=== PATIENT | male | born 1985 | race Caucasian/White ===

== ENCOUNTER 2018-01-03 12:08 | Inpatient (IN) | payer OTHER ==
[~2018-01-03] VITALS: Ht 175.3 cm; Wt 81.8 kg
[2018-01-03] MEDS: SODIUM CHLOR 0.9% 1000 ML INJ 1,000 ML IV SCH (15:58)
--- NOTE | 2018-01-03 15:58 | HHI.HP ---
[facility] Unknown Admission Diagnosis Diagnoses: Travel History International Travel<30 Days: No Contact w/Intl Traveler <30 Da: No Traveled to Known Affected Are: No History of Present Illness In transfer from [place] by Dr. Cerda to the product management specialist and the case was given to us the hospitalist group by him per hospital protocol. History from patient, and review of blood clots from [facility]. Patient was at [place] on monday and admitted to hospital there for abdoominal pain symptoms started 1 week ago january had fever LLQ pain little bit at epigastric had nausea, twice vomiting one day only no dairrhea no black or red stool no blood in urien not sure of vomitign color , maybe green had ct abdomen adn mri done there was diagnosed with chornic pancreatitis a few times before at [place] has hx of pseudocyst was told this admission pseudocyst got bigger they were worried about gi bleeed sx was consulted but not sure what to do and told he was sent here to either drain the pseudocyst or to put in stent was not on antibiotics there per patient was supposed to start, but ended up not was going to have picc line there but ended up not- for TPN, but he tolerated mechanical soft Review of Systems Except as stated in HPI: all other systems reviewed are Neg Past Family Social History Past Medical History htn walker parkinson white syndrome asthma- due to dusts, but has not been to ER visits for it for years, have not needed MDIs at home for years chronic pancreatitis with pseudocyst Past Surgical History none Allergies: Coded Allergies: hydrocodone (Verified Allergy, Intermediate, Nausea/Vomiting, 01/03/18) Patient has an adverse reaction to hydrocodone. Family History htn and heart dx in multiple members cancers of various types in multiple members dm strokes Social History smokes less than a pack a day, but not recently used to drink heavily in his mid 20s, then to about 2 drinks a day, NOW NO DRINKS SINCE OCT 2017 marjuana occasionally, no IV drugs Physical Exam Physical Exam GENERAL: This is a well-nourished, well-developed patient, in no apparent distress. SKIN: No rashes, ecchymoses or lesions. Cool and dry. HEAD: Atraumatic. Normocephalic. No temporal or scalp tenderness. EYES: No scleral icterus. No injection or drainage. ENT: Nose without bleeding, purulent drainage or septal hematoma. Airway patent. NECK: Trachea midline. No JVD Supple, nontender, no meningeal signs. CARDIOVASCULAR: Regular rate and rhythm without murmurs, gallops, or rubs. RESPIRATORY: Clear to auscultation. Breath sounds equal bilaterally. No wheezes , rales, or rhonchi. GASTROINTESTINAL: Abdomen soft,, nondistended. . No guarding. MUSCULOSKELETAL: Extremities without clubbing, cyanosis, or edema. No calf tenderness. Tenderness at left lower quadrant and midabdomen. NEUROLOGICAL: Awake and alert. Motor and sensory grossly within normal limits. Normal speech. Laboratory Labs from [facility] reviewed Imaging Imaging studies from [facility] reviewed Caprini VTE Risk Assessment Caprini VTE Risk Assessment: Mod/High Risk (score >= 2) Caprini Risk Assessment Model Point Value = 1 Point Value = 2 Point Value = 3 Point Value = 5 Age 41-60 Minor surgery BMI > 25 kg/m2 Swollen legs Varicose veins or History of unexplained or recurrent spontaneous Oral contraceptives or hormone replacement Sepsis (< 1 month) Serious lung disease, including pneumonia (< 1 month) Abnormal pulmonary function Acute myocardial infarction Congestive heart failure (< 1 month) History of inflammatory bowel disease Medical patient at bed rest Age 61-74 Arthroscopic surgery Major open surgery (> 45 min) Laparoscopic surgery (> 45 min) Malignancy Confined to bed (> 72 hours) Immobilizing plaster cast Central venous access Age >= 75 History of VTE Family history of VTE Factor V Leiden Prothrombin [id number] Lupus anticoagulant Anticardiolipin antibodies Elevated serum homocysteine Heparin-induced thrombocytopenia Other congenital or acquired thrombophilia Stroke (< 1 month) Elective arthroplasty Hip, pelvis, or leg fracture Acute spinal cord injury (< 1 month) Prophylaxis Regimen Total Risk Factor Score Risk Level Prophylaxis Regimen 0-1 Low Early ambulation 2 Moderate Order ONE of the following: *Sequential Compression Device (SCD) *Heparin 5000 units SQ BID 3-4 Higher Order ONE of the following medications: *Heparin 5000 units SQ TID *Enoxaparin/Lovenox 40 mg SQ daily (WT < 150 kg, CrCl > 30 mL/min) *Enoxaparin/Lovenox 30 mg SQ daily (WT < 150 kg, CrCl > 10-29 mL/min) *Enoxaparin/Lovenox 30 mg SQ BID (WT < 150 kg, CrCl > 30 mL/min) AND/OR *Sequential Compression Device (SCD) 5 or more Highest Order ONE of the following medications: *Heparin 5000 units SQ TID (Preferred with Epidurals) *Enoxaparin/Lovenox 40 mg SQ daily (WT < 150 kg, CrCl > 30 mL/min) *Enoxaparin/Lovenox 30 mg SQ daily (WT < 150 kg, CrCl > 10-29 mL/min) *Enoxaparin/Lovenox 30 mg SQ BID (WT < 150 kg, CrCl > 30 mL/min) AND *Sequential Compression Device (SCD) Assessment and Plan Assessment and Plan Impression: Acute pancreatitis Massive pancreatic pseudocyst. 18.9 x 15.4 x 10.5 cm arising from the mid pancreas, extending to gastric fundus and then inferiorly to left lower quadrant with marked enlargement as compared to a month ago when it measured 2.6 x 3 cm. With question of hyper attenuating densities throughout cyst suggesting either hemorrhagic products or faint contrast extravasation. Leukocytosis MRI of the pancreas revealing 3 main pancreatic duct obstruction with distal isolated pancreatic segments. Proximal and distal pancreatic duct seen but junction between head and body is not visualized. The site of origin for massive pseudocyst. Hypertension History of asthma GERD Chronic tobacco abuse Prior history of alcohol abuse. Has not been drinking since October 2017. Plan: N.p.o. IV hydration. Continue Zosyn 4.5 g IV every 6 hours. Continue Flagyl 500 mg IV every 6 hours. Patient reports that he thinks he was not on antibiotics there. However per notes, it seems that he was on Zosyn/ Flagyl. Lactobacillus. Pain control with oxycodone 10 mg p.o. every 4 hours as needed for pain greater than 5. Morphine 2 mg IV every 3 hours as needed for breakthrough pain. Bowel regimen. GI consult. Per signed out from Dr. Cerda the product management specialist who accepted the case from [place] and given to us, her outpatient case was discussed with GI Dr. Dr. Suarez. Patient is to undergo endoscopic ultrasound directed to him I did not. If no procedures done today, patient can continue p.o. feeding with clinical soft diet. Based on GI recommendations, will consider further management of pseudocyst with possibly interventional radiology involvement for drainage/stent placement. Obtain patient's medications list from his pharmacy. Patient has history of hypertension and was taking lisinopril. However this was being held at [place] likely because of low BP. Will monitor BP closely. DVT prophylaxis with SCD. Patient is admitted as full admit/inpatient. Discussed Condition With Patient, nursing staff Gia Brunner MD Jan 03, 2018 15:58
[2018-01-03] MEDS ORDERED: ONDANSETRON HCL 4 MG/2 ML VIAL IVP PRN (16:00)
[2018-01-03] MEDS ORDERED: NALOXONE HCL 0.4 MG/ML AMP IV PUSH PRN (16:00)
[2018-01-03] MEDS ORDERED: SODIUM CHLORIDE 0.9% FLUSH 10 ML FLUSH IV FLUSH PRN (16:00)
[2018-01-03 16:06] VITALS: BP 166/93; PULSE 78; RESP 18; TEMP 99.5; O2SAT 100
[2018-01-03] MEDS: LACTOBACILLUS ACIDOPHILUS TAB PO SCH (17:00)
[2018-01-03] MEDS: DOCUSATE SODIUM 100 MG CAP PO SCH (17:00)
[2018-01-03] MEDS: MORPHINE SULFATE 4 MG/ML INJ IV PUSH PRN ×2 (17:00→20:35)
[2018-01-03] MEDS: metroNIDAZOLE 500 MG INJ 100 ML IV SCH ×2 (17:00→22:58)
--- NOTE | 2018-01-03 17:32 | PD.CONS ---
HPI History of Present Illness This is a 32 year old male who was admitted on 01/03/2018 as a transfer from [place] with a diagnosis of chronic pancreatitis. Patient states he has been hospitalized since October 2017 3 with pancreatitis and had a significant history of alcohol intake. Patient currently denies any further alcohol intake since October 2017. Patient states that he was told initially he had small pseudocyst but current MRCP/MRI of the abdomen shows massive pseudocyst suspicion for type III main pancreatic duct disruption. Patient is currently on IV hydration and receiving IV pain management. Patient does note nausea and vomiting approximately a week ago which has now subsided he does note history of heartburn and was initially taken omeprazole but the med became ineffective. He was changed to Protonix 1 month ago but currently is still having bouts of heartburn on a weekly basis. Patient's currently having mid to upper abdominal pain which is tender to light palpation, onset approximately 1 week ago with his symptoms of nausea and vomiting. patient denies any dysphasia no obvious upper or lower GI bleeding, no diarrhea. Patient does note some chronic constipation over the past week but states he has not been eating very much and has had very little activity. Gastroenterology was consulted to assist with patient's care and evaluate plan of care for pancreatic pseudocyst. No family history of colon cancer according to patient. No previous EGD or corneal colonoscopy per patient's history (Reanna Chaney) PFSH Past Medical History Per the records htn walker parkinson white syndrome asthma- due to dusts, but has not been to ER visits for it for years, have not needed MDIs at home for years chronic pancreatitis with pseudocyst 3 hospital admissions Past Surgical History none (Reanna Chaney) Coded Allergies: hydrocodone (Verified Allergy, Intermediate, Nausea/Vomiting, 01/03/18) Patient has an adverse reaction to hydrocodone. Family History htn and heart dx in multiple members cancers of various types in multiple members dm strokes Social History smokes less than a pack a day, but not recently used to drink heavily in his mid 20s, then to about 2 drinks a day, NOW NO DRINKS SINCE OCT 2017 marjuana occasionally, no IV drugs (Reanna Chaney) Review of Systems Constitutional: COMPLAINS OF: Fever (Low-grade) Gastrointestinal: COMPLAINS OF: Abdominal pain, Constipation, Nausea, Vomiting (Approximately 1 week ago now subsided) (Reanna Chaney) GI Exam Vitals I&O Vital Signs Date Time Temp Pulse Resp B/P (MAP) Pulse Ox O2 Delivery O2 Flow Rate FiO2 01/03/18 16:06 99.5 78 18 166/93 (117) 100 Physical Examination HEENT: Pupils round and reactive to light; normocephalic; atraumatic; speech is clear NECK: Neck is supple, CHEST: Chest is clear to auscultation and percussion. No obvious shortness of breath CARDIAC: Regular rate and rhythm with no murmur gallop or rubs. ABDOMEN: Soft, mild or minimal bloating/distention, mid and upper abdominal tenderness to light palpation no hepatosplenomegaly; bowel sounds are present in all four quadrants. EXTREMITIES: No clubbing, cyanosis, or edema. SKIN: Normal; no rash; no jaundice. SEX OFFENDER TREATMENT PROFESSIONAL: No focal deficits; alert and oriented times three. (Reanna Chaney) Assessment and Plan Plan Pancreatitis with large massive pseudocyst according to the record. Will attempt to get films from radiology at [place]. Pancreatitis was probably secondary to extensive chronic alcohol usage, patient states no alcohol since October but has continued to have hospitalization 3 for his pancreatitis. Patient continues to have upper abdominal and gastric region abdominal pain approximately 1 week off and now. History of reflux and GERD has been on Protonix for approximately 1 month. Previously was on omeprazole no previous colonoscopy or endoscopy no family history of colon cancer Constipation 3 days probably secondary to decreased appetite and decreased mobility and decreased hydration before coming into the hospital Plan Pain management per attending Monitor labs and recheck labs in the morning Attempting to get films from [place]. Found DISC in front of chart. Will leave there for now. MiraLAX daily IV hydration Antiemetics Flagyl IV and Zosyn Probiotic Supportive care Further recommendations will be based on symptoms and old records This patient was seen per myself and Dr. Coffman, note was done on his behalf (Reanna Chaney) Physician Comments Patient laying in bed feeling somewhat better with controlled abdominal pain but no additional symptoms I reviewed some of his paperwork from [facility] he apparently has a pseudocyst measuring about 20 cm but otherwise it seems that this pseudocyst is not really having much of an effect on him until I examine his abdomen At this point we will proceed with a CT of the abdomen to further evaluate the pseudocyst to see whether it is shrinking or enlarging and based on that will make some decisions also we will need to know about its maturity Continue with current supportive care Monitor labs Further recommendations she will depend on the results of the above tests (Alexi Coffman MD) Reanna Chaney Jan 03, 2018 17:31 Alexi Coffman MD Jan 03, 2018 23:25
[2018-01-03] MEDS: POLYETHYLENE GLYCOL 17 GM PKG PO SCH (18:11)
[2018-01-03] MEDS: PIPERACIL-TAZO 4.5 GM PREMIX 100 ML IV SCH (18:44)
[2018-01-03 20:00] VITALS: BP 149/90; PULSE 82; RESP 20; TEMP 99.1; O2SAT 96
[2018-01-03] MEDS: SODIUM CHLORIDE 0.9% FLUSH 10 ML FLUSH IV FLUSH SCH ×2 (20:37→20:40)
[2018-01-04] VITALS (12 sets, daily range): BP systolic 126–142; BP diastolic 72–83; PULSE 66–82; RESP 16–20; TEMP 98.1–98.8; O2SAT 96–100
[2018-01-04] MEDS: PIPERACIL-TAZO 4.5 GM PREMIX 100 ML IV SCH ×5 (00:13→20:18)
[2018-01-04] MEDS: MORPHINE SULFATE 4 MG/ML INJ IV PUSH PRN ×6 (00:14→23:03)
[2018-01-04] MEDS: SODIUM CHLOR 0.9% 1000 ML INJ 1,000 ML IV SCH (05:45)
[2018-01-04] MEDS: metroNIDAZOLE 500 MG INJ 100 ML IV SCH ×4 (05:47→23:56)
[2018-01-04 06:00] LABS: AUTOMATED NEUTROPHIL # 6.5 TH/MM3 (1.8-7.7); BASOPHIL # 0.1 TH/MM3 (0-0.2); BASOPHIL % 0.6 % (0.0-2.0); EOSINOPHIL # 0.4 TH/MM3 (0-0.4); LYMPH % 17.3 % (9.0-44.0); LYMPHOCYTE # 1.6 TH/MM3 (1.0-4.8); MEAN CELL VOLUME 87.5 FL (80.0-100.0); MEAN CORPUSCULAR HGB CONC 34.3 % (32.0-36.0); MEAN PLATELET VOLUME 8.1 FL (7.0-11.0); MONO % 8.6 % (0.0-8.0); MONOCYTE # 0.8 TH/MM3 (0-0.9); NEUT % 69.5 % (16.0-70.0); PLATELET COUNT 441 TH/MM3 (150-450); RED BLOOD COUNT 2.35 MIL/MM3 (4.50-5.90); RED CELL DISTRIBUTION WIDTH 16.4 % (11.6-17.2); WHITE BLOOD COUNT 9.4 TH/MM3 (4.0-11.0)
[2018-01-04 06:06] LABS: HEMATOCRIT 20.6 % (39.0-51.0); INTERNATIONAL NORMALIZED RATIO 1.4 RATIO
[2018-01-04] MEDS ORDERED: FOLI800T PO (06:10)
[2018-01-04] MEDS ORDERED: ZOFR4TAB PO (06:10)
[2018-01-04] MEDS ORDERED: MIRA3350 PO (06:10)
[2018-01-04] MEDS ORDERED: AMLO10 PO (06:10)
[2018-01-04] MEDS ORDERED: COLA100C5 PO (06:10)
[2018-01-04] MEDS ORDERED: PANT40TA3 PO (06:10)
[2018-01-04] MEDS ORDERED: VITA100T54 PO (06:10)
[2018-01-04] MEDS ORDERED: LISI-515 PO (06:10)
[2018-01-04] MEDS ORDERED: SODIUM CHLOR 0.9% 250 ML INJ 250 ML IV ONE (06:30)
[2018-01-04 06:35] LABS: ALBUMIN 2.5 GM/DL (3.4-5.0); ALKALINE PHOSPHATASE 99 U/L (45-117); ALT (GPT) 16 U/L (12-78); AST (GOT) 14 U/L (15-37); BICARBONATE 23.7 MEQ/L (21.0-32.0); BLOOD UREA NITROGEN 5 MG/DL (7-18); CALCIUM 8.9 MG/DL (8.5-10.1); CHLORIDE 107 MEQ/L (98-107); CREATININE 0.61 MG/DL (0.60-1.30); GLOMERULAR FILTRATION RATE 152 ML/MIN (>89); GLUCOSE,RANDOM 96 MG/DL (74-106); SODIUM (NA) 139 MEQ/L (136-145); TOTAL BILIRUBIN ADULT 0.6 MG/DL (0.2-1.0); TOTAL PROTEIN 6.6 GM/DL (6.4-8.2)
[2018-01-04] MEDS: LACTOBACILLUS ACIDOPHILUS TAB PO SCH ×3 (08:17→17:37)
[2018-01-04] MEDS: SODIUM CHLORIDE 0.9% FLUSH 10 ML FLUSH IV FLUSH SCH ×2 (08:17→20:20)
[2018-01-04] MEDS: POLYETHYLENE GLYCOL 17 GM PKG PO SCH (08:17)
[2018-01-04] MEDS: DOCUSATE SODIUM 100 MG CAP PO SCH ×3 (08:18→17:37)
[2018-01-04] MEDS ORDERED: DIATRIZOATE MEGLUM/DIATRIZOATE SOD 9 ML CUP PO ONE ×2 (09:45→10:45)
[2018-01-04] MEDS: NS + KCL 20 MEQ INJ 1,000 ML IV SCH ×2 (10:39→23:06)
[2018-01-04] MEDS ORDERED: POTASSIUM CHLOR 20 MEQ PREMIX 100 ML IV ONE (11:00)
[2018-01-04] MEDS ORDERED: POTASSIUM CHLORIDE 20 MEQ CONTROLLED RELEASE TAB PO ONE ×2 (11:00→14:00)
--- NOTE | 2018-01-04 11:31 | HHI.PR ---
Subjective Remarks F/U Pancreatitis. Abd pain 02/18 dw RN Objective Vitals Vital Signs Date Time Temp Pulse Resp B/P (MAP) Pulse Ox O2 Delivery O2 Flow Rate FiO2 01/04/18 10:32 98.2 80 16 126/81 100 01/04/18 10:18 98.6 77 18 127/76 98 01/04/18 08:06 98.6 77 17 127/73 (91) 98 01/04/18 08:00 75 01/04/18 04:00 98.3 74 20 131/72 (91) 96 01/04/18 04:00 78 01/04/18 00:00 98.3 72 20 127/72 (90) 100 01/04/18 00:00 66 01/03/18 20:00 99.1 82 20 149/90 (109) 96 01/03/18 16:06 99.5 78 18 166/93 (117) 100 I/O 01/03/18 01/03/18 01/03/18 01/04/18 01/04/18 01/04/18 07:00 15:00 23:00 07:00 15:00 23:00 Intake Total 740 ml 1442 ml 25 ml Balance 740 ml 1442 ml 25 ml Intake Oral 240 ml IV Total 500 ml 1442 ml Blood Product IV Normal Saline Flush 25 ml Result Diagram: 01/04/18 0500 01/04/18 0500 Objective Remarks GENERAL: This is a well-nourished, well-developed patient, in no apparent distress. SKIN: No rashes, ecchymoses or lesions. Cool and dry. CARDIOVASCULAR: Regular rate and rhythm without murmurs, gallops, or rubs. RESPIRATORY: Clear to auscultation. Breath sounds equal bilaterally. No wheezes , rales, or rhonchi. GASTROINTESTINAL: Abdomen soft, tender epigastric, nondistended. No guarding. MUSCULOSKELETAL: Extremities without clubbing, cyanosis, or edema. No calf tenderness. NEUROLOGICAL: Awake and alert. Motor and sensory grossly within normal limits. Normal speech. A/P Problem List: (1) Pancreatitis ICD Code: K85.90 - Acute pancreatitis without necrosis or infection, unspecified Assessment and Plan Acute pancreatitis with massive pancreatic pseudocyst. 18.9 x 15.4 x 10.5 cm arising from the mid pancreas, extending to gastric fundus and then inferiorly to left lower quadrant with marked enlargement as compared to a month ago when it measured 2.6 x 3 cm. With question of hyper attenuating densities throughout cyst suggesting either hemorrhagic products or faint contrast extravasation. Stable still with abdominal pain. Continue pain management counseled regarding narcotics and antibiotics with Zosyn and Flagyl. Repeat CT ordered. Per GI regarding pseudocyst, if mature and appropriate size consider EUS and cyst gastrostomy Leukocytosis. Improved Hypertension Norvasc History of asthma. Stable. GERD. Stable continue PPI Chronic tobacco abuse. Counseled Prior history of alcohol abuse. Has not been drinking since October 2017. DVT prophylaxis with SCD. Casey Don MD Jan 04, 2018 11:31
--- NOTE | 2018-01-04 12:02 | HHI.GIFU ---
Subjective Remarks Out of bed. drinking contrast. Pain unchanged. denies bleeding. cites previously being told he had MARILIN. (Shanna Tuttle) Objective Vitals I&O Vital Signs Date Time Temp Pulse Resp B/P (MAP) Pulse Ox O2 Delivery O2 Flow Rate FiO2 01/04/18 11:28 Room Air 01/04/18 10:32 98.2 80 16 126/81 100 01/04/18 10:18 98.6 77 18 127/76 98 01/04/18 08:06 98.6 77 17 127/73 (91) 98 01/04/18 08:00 75 01/04/18 08:00 Room Air 01/04/18 04:00 98.3 74 20 131/72 (91) 96 01/04/18 04:00 78 01/04/18 00:00 98.3 72 20 127/72 (90) 100 01/04/18 00:00 66 01/03/18 20:00 99.1 82 20 149/90 (109) 96 01/03/18 16:06 99.5 78 18 166/93 (117) 100 I/O 01/03/18 01/03/18 01/03/18 01/04/18 01/04/18 01/04/18 07:00 15:00 23:00 07:00 15:00 23:00 Intake Total 740 ml 1442 ml 25 ml Balance 740 ml 1442 ml 25 ml Intake Oral 240 ml IV Total 500 ml 1442 ml Blood Product IV Normal Saline Flush 25 ml Laboratory Laboratory Tests Test 01/04/18 05:00 White Blood Count 9.4 Red Blood Count 2.35 Hemoglobin 7.0 Hematocrit 20.6 Mean Corpuscular Volume 87.5 Mean Corpuscular Hemoglobin 30.0 Mean Corpuscular Hemoglobin Concent 34.3 Red Cell Distribution Width 16.4 Platelet Count 441 Mean Platelet Volume 8.1 Neutrophils (%) (Auto) 69.5 Lymphocytes (%) (Auto) 17.3 Monocytes (%) (Auto) 8.6 Eosinophils (%) (Auto) 4.0 Basophils (%) (Auto) 0.6 Neutrophils # (Auto) 6.5 Lymphocytes # (Auto) 1.6 Monocytes # (Auto) 0.8 Eosinophils # (Auto) 0.4 Basophils # (Auto) 0.1 CBC Comment DIFF FINAL Differential Comment Prothrombin Time 14.0 Prothromb Time International Ratio 1.4 Blood Urea Nitrogen 5 Creatinine 0.61 Random Glucose 96 Total Protein 6.6 Albumin 2.5 Calcium Level 8.9 Alkaline Phosphatase 99 Aspartate Amino Transf (AST/SGOT) 14 Alanine Aminotransferase (ALT/SGPT) 16 Total Bilirubin 0.6 Sodium Level 139 Potassium Level 2.8 Chloride Level 107 Carbon Dioxide Level 23.7 Anion Gap 8 Estimat Glomerular Filtration Rate 152 Magnesium Level 1.6 Lipase 222 Physical Exam HEENT: PERRL; normocephalic; atraumatic; no jaundice. CHEST: CTA CARDIAC: RRR ABDOMEN: semifirm, distended, mild TTP diffusely; bowel sounds are present in all four quadrants. EXTREMITIES: No clubbing, cyanosis, or edema. SKIN: Normal; no rash; no jaundice. STEAM BRUSH OPERATOR: No focal deficits; alert and oriented times three. (Shanna Tuttle) Assessment and Plan Plan Pancreatitis with large massive pseudocyst according to the record. Will attempt to get films from radiology at [place]. Pancreatitis was probably secondary to extensive chronic alcohol usage, patient states no alcohol since October but has continued to have hospitalization 3 for his pancreatitis. Patient continues to have upper abdominal and gastric region abdominal pain approximately 1 week off and now. History of reflux and GERD has been on Protonix for approximately 1 month. Previously was on omeprazole no previous colonoscopy or endoscopy no family history of colon cancer Constipation 3 days probably secondary to decreased appetite and decreased mobility and decreased hydration before coming into the hospital - anemia - hgb 7 receiving blood. no obvious GI bleeding, pt cites hx MARILIN. 01/04/[address] pain unchained. lipase WNL. Plan - await CT - if mature and appropriate size consider EUS and cyst gastrostomy - consider creon when eating - monitor labs - transfuse PRBC as needed - supportive care This patient was seen per myself and Dr. Coffman, note was done on his behalf (Shanna Tuttle) Physician Comments Patient seen and examined Agree with above Continue with current supportive care Monitor labs We will proceed with endoscopic ultrasound and cyst gastrostomy tomorrow (Alexi Coffman MD) Shanna Tuttle Jan 04, 2018 12:01 Alexi Coffman MD Jan 04, 2018 21:04
[2018-01-04] MEDS ORDERED: IOHEXOL 350 MG/ML 10 ML VIAL (for RAD DIAG) IVCONTRAST ONE (14:31)
--- NOTE | 2018-01-04 14:58 | RADRPT ---
EXAM DATE/TIME: 01/04/2018 14:16 [place] COMPARISON: No previous studies available for comparison. INDICATIONS : Left lower abdominal pain IV CONTRAST: 91 cc Omnipaque 350 (iohexol) IV ORAL CONTRAST: Prescribed oral contrast ingested. RADIATION DOSE: 9.11 CTDIvol (mGy) MEDICAL HISTORY : Hypertension. Pancreatitis. Pseudocyst SURGICAL HISTORY : None. ENCOUNTER: Initial ACUITY: 1 day PAIN SCALE: 6/10 LOCATION: Left lower quadrant TECHNIQUE: Volumetric scanning of the abdomen and pelvis was performed. Using automated exposure control and ad justment of the mA and/or kV according to patient size, radiation dose was kept as low as reasonably achievable to obtain optimal diagnostic quality images. DICOM format image data is available electro nically for review and comparison. FINDINGS: LOWER LUNGS: The visualized lower lungs are clear. LIVER: Homogeneous density without lesion. There is no dilation of the biliary tree. No calcified gallston es. SPLEEN: Normal size without lesion. PANCREAS: Arising from the neck of the pancreas is a large low density mass presumably a large pancreatic pseud ocyst. There is a small amount of debris in the dependent portion. The cyst measures 16.0 x 12.1 cm. I don't see any evidence of internal hemorrhage. There is some surrounding soft tissue inflammation. The mass does displace the stomach and abuts the anterior abdominal wall. The mass measured 19 cm in height. KIDNEYS: Normal in size and shape. There is no mass, stone or hydronephrosis. ADRENAL GLANDS: Within normal limits. VASCULAR: There is no aortic aneurysm. BOWEL/MESENTERY: The stomach, small bowel, and colon demonstrate no acute abnormality. There is no free intraperitone al air or fluid. ABDOMINAL WALL: Within normal limits. RETROPERITONEUM: There is no lymphadenopathy. BLADDER: No wall thickening or mass. Free fluid posterior to the bladder REPRODUCTIVE: Within normal limits. INGUINAL: There is no lymphadenopathy or hernia. MUSCULOSKELETAL: Within normal limits for patient age. CONCLUSION: Large fluid filled mass in the mid abdomen I suspect arising from the neck of the pancreas consistent with large pseudocyst. There is some indistinctness of the pancreas suggesting pancreatitis. Mario Schroeder MD on January 04, 2018 at 14:51 Board Certified Radiologist. This report was verified electronically.
[2018-01-04 16:19] LABS: IRON (FE) 11 MCG/DL (65-175); TOTAL IRON BINDING CAPACITY 183 MCG/DL (250-450)
[2018-01-04 16:22] LABS: FERRITIN 501 NG/ML (26-388)
[2018-01-05] VITALS (18 sets, daily range): BP systolic 131–162; BP diastolic 73–95; PULSE 50–104; RESP 16–19; TEMP 98.4–99.5; O2SAT 97–100
[2018-01-05] MEDS: PIPERACIL-TAZO 4.5 GM PREMIX 100 ML IV SCH ×4 (02:00→19:50)
[2018-01-05 05:32] LABS: AUTOMATED NEUTROPHIL # 6.8 TH/MM3 (1.8-7.7); BASOPHIL # 0.1 TH/MM3 (0-0.2); BASOPHIL % 0.7 % (0.0-2.0); EOSINOPHIL # 0.4 TH/MM3 (0-0.4); HEMATOCRIT 22.3 % (39.0-51.0); HEMOGLOBIN 7.7 GM/DL (13.0-17.0); LYMPH % 17.2 % (9.0-44.0); LYMPHOCYTE # 1.7 TH/MM3 (1.0-4.8); MEAN CELL VOLUME 85.4 FL (80.0-100.0); MEAN CORPUSCULAR HEMOGLOBIN 29.5 PG (27.0-34.0); MEAN CORPUSCULAR HGB CONC 34.5 % (32.0-36.0); MONO % 8.7 % (0.0-8.0); MONOCYTE # 0.8 TH/MM3 (0-0.9); NEUT % 69.4 % (16.0-70.0); PLATELET COUNT 490 TH/MM3 (150-450); RED BLOOD COUNT 2.61 MIL/MM3 (4.50-5.90); RED CELL DISTRIBUTION WIDTH 16.9 % (11.6-17.2); WHITE BLOOD COUNT 9.7 TH/MM3 (4.0-11.0)
[2018-01-05] MEDS: metroNIDAZOLE 500 MG INJ 100 ML IV SCH ×3 (05:42→19:50)
[2018-01-05 05:57] LABS: BICARBONATE 23.1 MEQ/L (21.0-32.0); CALCIUM 8.5 MG/DL (8.5-10.1); CREATININE 0.57 MG/DL (0.60-1.30); MAGNESIUM 1.7 MG/DL (1.5-2.5)
[2018-01-05] MEDS: SODIUM CHLORIDE 0.9% FLUSH 10 ML FLUSH IV FLUSH SCH ×3 (07:37→19:51)
[2018-01-05] MEDS: MORPHINE SULFATE 4 MG/ML INJ IV PUSH PRN (08:05)
[2018-01-05] MEDS: LACTOBACILLUS ACIDOPHILUS TAB PO SCH ×4 (09:00→19:50)
[2018-01-05] MEDS ORDERED: THIAMINE HCL 100 MG TAB PO SCH (09:00)
[2018-01-05] MEDS ORDERED: PANTOPRAZOLE SOD 40 MG DELAYED RELEASE TAB PO SCH (09:00)
[2018-01-05] MEDS: DOCUSATE SODIUM 100 MG CAP PO SCH ×2 (09:00→13:00)
[2018-01-05] MEDS ORDERED: PHENYLEPH/NS 1000 MCG/10 ML SYR IV ONE (12:00)
[2018-01-05] MEDS ORDERED: ONDANSETRON HCL 4 MG/2 ML VIAL IV ONE (12:00)
[2018-01-05] MEDS ORDERED: DEXAMETHASONE SOD PHOS 4 MG/ML VIAL IV ONE (12:00)
[2018-01-05] MEDS ORDERED: LIDOCAINE HCL 1% PF 5 ML SYRINGE OTHER ONE (12:00)
[2018-01-05] MEDS ORDERED: SUCCINYLCHOLINE CHLORIDE 100 MG/5 ML SYRINGE IV PUSH ONE (12:00)
[2018-01-05] MEDS ORDERED: PROPOFOL 200 MG/20 ML AMP IV ONE (12:00)
[2018-01-05] MEDS ORDERED: ROCURONIUM INJ 50 MG/5 ML SYRINGE IV PUSH ONE (12:00)
--- NOTE | 2018-01-05 13:04 | HHI.PR ---
Subjective Remarks F/u pancreatitis. Still with abdominal pain awaiting EUS dw RN Objective Vitals Vital Signs Date Time Temp Pulse Resp B/P (MAP) Pulse Ox O2 Delivery O2 Flow Rate FiO2 01/05/18 12:00 99.5 78 18 149/85 (106) 100 01/05/18 08:00 100 Room Air 01/05/18 08:00 98.4 77 18 142/80 (100) 100 01/05/18 04:12 Room Air 01/05/18 04:00 98.4 88 18 131/73 (92) 99 01/05/18 03:42 71 01/05/18 00:15 Room Air 01/05/18 00:00 99.1 76 17 140/81 (100) 97 01/04/18 23:43 69 01/04/18 20:00 Room Air 01/04/18 19:48 76 01/04/18 19:43 98.8 75 16 142/83 (102) 99 01/04/18 16:06 98.5 80 16 137/74 (95) 99 01/04/18 13:30 Room Air I/O 01/04/18 01/04/18 01/04/18 01/05/18 01/05/18 01/05/18 07:00 15:00 23:00 07:00 15:00 23:00 Intake Total 1442 ml 450 ml 200 ml 1300 ml Balance 1442 ml 450 ml 200 ml 1300 ml Intake Oral 0 ml IV Total 1442 ml 200 ml 1300 ml Packed Cells 400 ml Blood Product IV Normal Saline Flush 50 ml # Voids 5 3 # Bowel Movements 0 1 Result Diagram: 01/05/18 0440 01/05/18 0440 Imaging Last Impressions Abdomen/Pelvis CT 01/03/18 0000 Signed Impressions: Service Date/Time: December 14:16 - CONCLUSION: Large fluid filled mass in the mid abdomen I suspect arising from the neck of the pancreas consistent with large pseudocyst. There is some indistinctness of the pancreas suggesting pancreatitis. Mario Schroeder MD Objective Remarks GENERAL: This is a well-nourished, well-developed patient, in no apparent distress. SKIN: No rashes, ecchymoses or lesions. Cool and dry. CARDIOVASCULAR: Regular rate and rhythm without murmurs, gallops, or rubs. RESPIRATORY: Clear to auscultation. Breath sounds equal bilaterally. No wheezes , rales, or rhonchi. GASTROINTESTINAL: Abdomen soft, tender epigastric, nondistended. No guarding. MUSCULOSKELETAL: Extremities without clubbing, cyanosis, or edema. No calf tenderness. NEUROLOGICAL: Awake and alert. Motor and sensory grossly within normal limits. Normal speech. A/P Problem List: (1) Pancreatitis ICD Code: K85.90 - Acute pancreatitis without necrosis or infection, unspecified Assessment and Plan Acute pancreatitis with massive pancreatic pseudocyst. 18.9 x 15.4 x 10.5 cm arising from the mid pancreas, extending to gastric fundus and then inferiorly to left lower quadrant with marked enlargement as compared to a month ago when it measured 2.6 x 3 cm. With question of hyper attenuating densities throughout cyst suggesting either hemorrhagic products or faint contrast extravasation. Stable still with abdominal pain. Continue pain management counseled regarding narcotics and antibiotics with Zosyn and Flagyl. Repeat CT not for EUS today Leukocytosis. Improved Hypertension Norvasc History of asthma. Stable. GERD. Stable continue PPI Chronic tobacco abuse. Counseled Prior history of alcohol abuse. Has not been drinking since October 2017. DVT prophylaxis with SCD. Casey Don MD Jan 05, 2018 13:04
[2018-01-05 13:55] LABS: AUTOMATED NEUTROPHIL # 7.1 TH/MM3 (1.8-7.7); BASOPHIL # 0.1 TH/MM3 (0-0.2); BASOPHIL % 0.9 % (0.0-2.0); EOSINOPHIL # 0.4 TH/MM3 (0-0.4); EOSINOPHIL % 3.6 % (0.0-4.0); HEMATOCRIT 22.7 % (39.0-51.0); HEMOGLOBIN 7.7 GM/DL (13.0-17.0); LYMPH % 19.6 % (9.0-44.0); LYMPHOCYTE # 2.1 TH/MM3 (1.0-4.8); MEAN CELL VOLUME 86.7 FL (80.0-100.0); MEAN CORPUSCULAR HEMOGLOBIN 29.2 PG (27.0-34.0); MEAN CORPUSCULAR HGB CONC 33.7 % (32.0-36.0); MONO % 8.1 % (0.0-8.0); MONOCYTE # 0.9 TH/MM3 (0-0.9); NEUT % 67.8 % (16.0-70.0); PLATELET COUNT 486 TH/MM3 (150-450); RED BLOOD COUNT 2.62 MIL/MM3 (4.50-5.90); RED CELL DISTRIBUTION WIDTH 17.3 % (11.6-17.2); WHITE BLOOD COUNT 10.5 TH/MM3 (4.0-11.0)
[2018-01-05] MEDS ORDERED: PHENYLEPHRINE HCL 10 MG/ML VIAL ONE (14:06)
[2018-01-05] MEDS ORDERED: PROPOFOL 1000 MG/100 ML INJ 100 ML ONE (14:06)
--- NOTE | 2018-01-05 14:26 | PD.PROCEDR ---
GI Procedure PROCEDURE PERFORMED Endoscopic ultrasound with axios stent placement and pseudocyst drainage INDICATION FOR PROCEDURE Large pseudocyst PROCEDURE: The procedure, risks and benefits were discussed with Patient/POA and informed consent was obtained. Anesthesia sedated Patient with Diprivan and he was intubated. Patient was placed in the left lateral decubitus position. Endoscopic ultrasound: The Pentax videoscope was introduced through the oropharynx and advanced to the second portion of the duodenum. FINDINGS: The patient was noted to have a huge pseudocyst most of the compression was noted in the distal gastric body and antrum no gastric outlet obstruction noted gastric mucosa was also unremarkable using the axios system a 10 X 10 axios stent was placed with ease once it was placed old blood was noted to be coming from the stent the abdomen became soft initially vital signs were stable but then we noted slight decline in blood pressure we observe the stent for any active bleeding for over 20 minutes there were small amounts of drainage at a time noted but still dark red and maroonish a hemoglobin was sent during the procedure and this came back stable about 1500 cc were suctioned from the stomach of old blood due to the concern that there may have been bleeding into the cyst we opted to keep the patient intubated and he will be sent to the ICU for close monitoring over the next 24 hours ESTIMATED BLOOD LOSS: There was about 1500 cc of old blood suctioned from the stomach as a result of draining the pseudocyst which most likely was a hemorrhagic cyst SPECIMENS REMOVED: None COMPLICATIONS: Possible bleeding but for now the patient appears to be stable hemodynamically with stable hemoglobin IMPRESSION: Large pseudocyst probably a hemorrhagic pseudocyst status post drainage PLAN: Patient to be transferred to the [facility] Patient will receive 2 units of blood in the OR with 2 units of fresh frozen plasma 2 units of blood will be on hold at all times Case discussed briefly with interventional radiology they are on standby Further recommendations shall depend on his hospital course Alexi Coffman MD Jan 05, 2018 14:26
[2018-01-05] MEDS: PROPOFOL 1000 MG/100 ML IV PRN ×3 (14:38→21:00)
[2018-01-05] MEDS ORDERED: DO NOT ADM ANY ANTICOAGULANT DRUGS PRN (14:58)
[2018-01-05] MEDS ORDERED: SODIUM CHLOR 0.9% 1000 ML INJ 1,000 ML IV SCH (15:01)
--- NOTE | 2018-01-05 15:12 | PD.CONS ---
[facility] Service Critical Care Medicine Consult Requested By Dr. Roth Reason for Consult Hypotension/hemorrhage Primary Care Physician Unknown History of Present Illness This is a 32-year-old male. Date of admission . Date of consultation 01/05/2018. Past medical history includes chronic pancreatitis with known pseudocyst with prior history of heavy alcohol intake. He states he quit October 2017. Also history of Yxtub-Kktqmtdgc-Gorsr syndrome, constipation, gastroesophageal reflux disease and hypertension with asthma. with a diagnosis of chronic pancreatitis. Patient has a known history of small pseudocyst but MRCP at that facility showed a massive pseudocyst versus a type III main pancreatic duct disruption. Patient was complaining of abdominal pain at that time. Patient was transferred here for a GI evaluation for endoscopic ultrasound with GI. Hemoglobin admission was around 7. INR 1.4. Today, the patient underwent a Pentax videoscope via endoscopic ultrasound with axios stent placement and pseudocyst drainage. The patient was noted to have a huge pseudocyst with most compression noted in the distal gastric body and antrum. No gastric outlet obstruction. A 10 x 10 axial stent was placed with old blood noted coming from the stent into the abdomen. During the procedure partly 1500 cc suctioned from the stomach. Patient was transfused 2 PRBCs and 2 FFP. Hemoglobin went from 7.7-9.1. Dr. Coffman discussed with interventional radiology for an standpoint bleeding persists. 2 units of PRBCs on standby at all times. Patient is currently hemodynamically stable on propofol drip and remained intubated for the next 24 hours. Review of Systems ROS Limitations: Intubated Past Family Social History Allergies: Coded Allergies: hydrocodone (Verified Allergy, Intermediate, Nausea/Vomiting, 01/03/18) Patient has an adverse reaction to hydrocodone. Past Medical History Hypertension Constipation Gastroesophageal reflux disease Chronic pancreatitis Lojpr-Vhlctxcjn-Qlcwe syndrome Asthma Pancreatic pseudocyst Past Surgical History None Reported Medications Amlodipine 10 mg p.o. daily Lisinopril 20 mg p.o. twice daily Pantoprazole 40 mg p.o. daily Folic acid 1 mg p.o. daily Thiamine 100 mg daily Folic acid 1000 mcg p.o. daily Polyethylene glycol 17 g p.o. daily Docusate 100 mg p.o. twice daily as needed Active Ordered Medications Reviewed in EMR Family History Family history of heart disease and hypertension. Various cancers. Diabetes and CVA. Social History Less than 1 pack per day tobacco. Occasional THC. Denies IV drug use. Alcohol free since October 2017 per documentation. Previous heavy consumer of alcoholic beverages Physical Exam Vital Signs Vital Signs Date Time Temp Pulse Resp B/P (MAP) Pulse Ox O2 Delivery O2 Flow Rate FiO2 01/05/18 12:00 99.5 78 18 149/85 (106) 100 01/05/18 08:00 100 Room Air 01/05/18 08:00 98.4 77 18 142/80 (100) 100 01/05/18 04:12 Room Air 01/05/18 04:00 98.4 88 18 131/73 (92) 99 01/05/18 03:42 71 01/05/18 00:15 Room Air 01/05/18 00:00 99.1 76 17 140/81 (100) 97 01/04/18 23:43 69 01/04/18 20:00 Room Air 01/04/18 19:48 76 01/04/18 19:43 98.8 75 16 142/83 (102) 99 01/04/18 16:06 98.5 80 16 137/74 (95) 99 Physical Exam GENERAL: 32-year-old male currently orotracheally intubated SKIN: Warm and dry. HEAD: Atraumatic. Normocephalic. EYES: Pupils equal and round. No scleral icterus. No injection or drainage. ENT: No nasal bleeding or discharge. Mucous membranes pink and moist. NECK: Trachea midline. No JVD. CARDIOVASCULAR: Regular rate and rhythm. S1, S2 predose without murmur RESPIRATORY: No accessory muscle use. Clear to auscultation. Breath sounds equal bilaterally. GASTROINTESTINAL: Abdomen soft, non-tender, nondistended. Hypoactive bowel sounds are appreciated MUSCULOSKELETAL: Extremities without significant peripheral edema. No obvious deformities. NEUROLOGICAL: Arousable on the ventilator and attempting to pull out ET tube. Moving all 4 extremities spontaneously. Positive gag and corneal reflex. Laboratory Laboratory Tests Test 01/05/18 04:40 01/05/18 13:38 White Blood Count 9.7 10.5 Red Blood Count 2.61 2.62 Hemoglobin 7.7 7.7 Hematocrit 22.3 22.7 Mean Corpuscular Volume 85.4 86.7 Mean Corpuscular Hemoglobin 29.5 29.2 Mean Corpuscular Hemoglobin Concent 34.5 33.7 Red Cell Distribution Width 16.9 17.3 Platelet Count 490 486 Mean Platelet Volume 8.0 8.0 Neutrophils (%) (Auto) 69.4 67.8 Lymphocytes (%) (Auto) 17.2 19.6 Monocytes (%) (Auto) 8.7 8.1 Eosinophils (%) (Auto) 4.0 3.6 Basophils (%) (Auto) 0.7 0.9 Neutrophils # (Auto) 6.8 7.1 Lymphocytes # (Auto) 1.7 2.1 Monocytes # (Auto) 0.8 0.9 Eosinophils # (Auto) 0.4 0.4 Basophils # (Auto) 0.1 0.1 CBC Comment DIFF FINAL DIFF FINAL Differential Comment Blood Urea Nitrogen 5 Creatinine 0.57 Random Glucose 77 Calcium Level 8.5 Magnesium Level 1.7 Sodium Level 139 Potassium Level 3.5 Chloride Level 105 Carbon Dioxide Level 23.1 Anion Gap 11 Estimat Glomerular Filtration Rate 165 Result Diagram: 01/05/18 1338 01/05/18 0440 Imaging Last Impressions Abdomen/Pelvis CT 01/03/18 0000 Signed Impressions: Service Date/Time: December 14:16 - CONCLUSION: Large fluid filled mass in the mid abdomen I suspect arising from the neck of the pancreas consistent with large pseudocyst. There is some indistinctness of the pancreas suggesting pancreatitis. Mario Schroeder MD Septic Shock Reassessment Septic shock perfusion: reassessment completed Assessment and Plan Assessment and Plan Neuro/Psych: History of THC use History of EtOH abuse Currently on propofol at 25 mcg/kg per min/midazolam and fentanyl drips as needed for sedation/analgesia while intubated Goal of RA SS -2 Daily sedation vacation Currently on thiamine 100 mg p.o. daily and folic acid 1 mg daily. Resume clinically indicated CV: Hemorrhagic shock resolved History of Fjcfb-Dscvbpvnm-Mshtl syndrome Hypertension Currently on normal saline at 100 cc an hour Briefly on phenylephrine drip. This is been held with mean arterial pressure currently greater than 65 Holding amlodipine 10 mg and lisinopril 20 mg twice daily/home medication while hypertensive/possible bleed Status post 2 FFP and 2 PRBCs Serial hemoglobins every 4 hours Hemoglobin 7.7-9.1. Coags currently pending Currently normal saline at 100 cc an hour Lactate and coags currently pending Resp: Acute respiratory failure History of tobaccoism and THC use [facility] 16/500/09/15/49 Ventilator bundle Albuterol/ipratropium aerosols every 6 hours with albuterol aerosols every 2 hours as needed dyspnea Follow postintubation chest x-ray GI: Status post endoscopic ultrasound with 10 x 10 axios stent placement and pseudocyst drainage for hemorrhagic cyst Chronic pancreatitis Hypoalbuminemia Status post endoscopic ultrasound with stent placement as above. -1500 cc per suction. Hemoglobin currently 9.1 I was notified. On standby if indicated Pantoprazole 40 mg IV twice daily Holding docusate sodium 100 mg twice daily. On polythene glycol 17 g daily for constipation Follow-up in a.m. amylase/lipase and LFTs : Mayer catheter for accurate I's and O's in a critically ill patient Endo: Sliding scale insulin with Novulin R with Accu-Cheks to maintain euglycemia/ every 6 hours low regimen Renal: Follow BMP Creatinine initially within normal limits Monitor urine output Accurate I's and O Heme: Acute blood loss anemia FEN TIBC both low. Ferritin high Received 2 FFP and 2 PRBCs. Serial hemoglobins every 4 hours Initial postop hemoglobin and coags pending ID: Monitor for infection. Blood cultures 2 ordered Currently on piperacillin/tazobactam and metronidazole day #2 MSK: PT evaluate and treat FEN: Replace electrolytes as clinically indicated per ICU electrolyte protocol. Potassium and magnesium will be given now Access -Utilize peripheral IV. Central line if indicated Prophylaxis -GI -pantoprazole -DVT -SCD/holding pharmacological prophylaxis in light of hemorrhage Critical Care: The total critical care time was 35 minutes. Time to perform other separately billable procedures was not included in the critical care time. Code Status Full code Discussed Condition With Dr. Coffman. Patient. Care plan discussed and all questions answered. Delio Perez MD Jan 05, 2018 15:12
[2018-01-05] MEDS ORDERED: BISACODYL 10 MG SUPP RECTAL PRN (15:15)
[2018-01-05] MEDS ORDERED: PHENYLEPHRINE 40 MG in D5W 500 ML IV PRN (15:15)
[2018-01-05] MEDS ORDERED: SENNOSIDES 8.6 MG TAB PO PRN (15:15)
[2018-01-05] MEDS ORDERED: PROPOFOL 1000 MG/100 ML INJ 100 ML IV PRN (15:15)
[2018-01-05] MEDS ORDERED: MAGNESIUM OXIDE 400 MG TAB PO PRN (15:15)
[2018-01-05] MEDS ORDERED: MAGNESIUM SULFATE INJ 2 GM in SODIUM CHLORIDE 0.9% INJ 96 ML IV PRN (15:15)
[2018-01-05] MEDS ORDERED: POTASSIUM CHLOR 20 MEQ PREMIX 100 ML IV PRN ×2 (15:15)
[2018-01-05] MEDS ORDERED: ACETAMINOPHEN 1000 MG/100 ML 100 ML IV PRN (15:15)
[2018-01-05] MEDS ORDERED: CHLORHEXIDINE GLUCONATE 2 % 1 PACK (2 CLOTHS) TOP PRN (15:15)
[2018-01-05] MEDS ORDERED: fentaNYL DRIP 250 ML IV PRN (15:15)
[2018-01-05] MEDS ORDERED: NURSING INFORMATION XX SCH (15:15)
[2018-01-05] MEDS ORDERED: POTASSIUM CHLOR 40 MEQ PREMIX 100 ML IV PRN ×2 (15:15)
[2018-01-05] MEDS ORDERED: MIDAZOLAM 100 MG/100 ML INJ 100 ML IV PRN (15:15)
[2018-01-05] MEDS ORDERED: SODIUM CHLORIDE 0.9% FLUSH 10 ML FLUSH IV FLUSH PRN (15:15)
[2018-01-05] MEDS: SODIUM CHLOR 0.9% 1000 ML INJ 1,000 ML IV SCH (15:15)
[2018-01-05] MEDS ORDERED: TERBUTALINE INJ 1 MG/ML AMP SQ PRN (15:15)
[2018-01-05] MEDS ORDERED: MAGNESIUM SULFATE INJ 4 GM in SODIUM CHLORIDE 0.9% INJ 92 ML IV PRN (15:15)
[2018-01-05] MEDS ORDERED: LACTULOSE SYRUP 20 GM/30 ML CUP PO PRN (15:15)
[2018-01-05] MEDS ORDERED: POTASSIUM PHOSPHATE MONOBASIC 500 MG TAB PO PRN (15:15)
[2018-01-05] MEDS ORDERED: DEXTROSE 50% IN WATER 50 ML VIAL(D50) IV PUSH PRN (15:15)
[2018-01-05] MEDS ORDERED: POTASSIUM PHOSPHATE INJ 30 MMOL in SODIUM CHLOR 0.9% 250 ML INJ 250 ML IV PRN (15:15)
[2018-01-05] MEDS ORDERED: POTASSIUM CHLOR 10 MEQ PREMIX 100 ML IV ONE (15:15)
[2018-01-05] MEDS ORDERED: POTASSIUM CHLORIDE 25 MEQ EFFERVESCENT TAB PO PRN (15:15)
[2018-01-05] MEDS ORDERED: RESP: ALBUTEROL 2.5 MG/3 ML NEB (PRN) INH (15:15)
[2018-01-05] MEDS ORDERED: SODIUM PHOSPHATE INJ 30 MMOL in SODIUM CHLOR 0.9% 250 ML INJ 240 ML IV PRN (15:15)
[2018-01-05] MEDS ORDERED: MAGNESIUM SULFATE 1 GM PREMIX 100 ML IV ONE (15:15)
[2018-01-05] MEDS ORDERED: POTASSIUM PHOSPHATE MONOBASIC 500 MG TAB PO/TUBE PRN (15:15)
[2018-01-05] MEDS ORDERED: ONDANSETRON HCL 4 MG/2 ML VIAL IV PUSH PRN (15:15)
[2018-01-05] MEDS ORDERED: GLUCAGON 1 MG/ML VIAL OTHER PRN (15:15)
[2018-01-05] MEDS ORDERED: MAGNESIUM HYDROXIDE SUSP 30 ML CUP PO PRN (15:15)
[2018-01-05] MEDS ORDERED: *HYDROmorphone PF 0.5 MG/0.5 ML PERIprocedure ONLY ONE (15:22)
[2018-01-05] MEDS: RESP: ALBUTEROL 2.5 MG/IPRATROPIUM 0.5 MG NEB (SCH) INH ×2 (15:47→20:31)
--- NOTE | 2018-01-05 15:57 | RADRPT ---
EXAM DATE/TIME: 01/05/2018 15:07 [place] COMPARISON: No previous studies available for comparison. INDICATIONS : Evaluate for ET tube placement. MEDICAL HISTORY : None. SURGICAL HISTORY : None. ENCOUNTER: Initial ACUITY: 1 day PAIN SCORE: Non-responsive. LOCATION: chest FINDINGS: The endotracheal tube is in good position 4 cm above the nellie. A nasogastric tube has its tip in th e stomach. The heart is mildly prominent. Minimal central pulmonary vascular congestion is noted. Deg enerative changes and scoliosis of the thoracic spine are noted. CONCLUSION: 1. Endotracheal tube in good position 4 cm above the nellie. 2. Mild cardiomegaly and minimal central vascular congestion. 3. Degenerative changes and scoliosis of the thoracic spine. Jeramie Valente MD on January 05, 2018 at 15:53 Board Certified Radiologist. This report was verified electronically.
[2018-01-05] MEDS: PANTOPRAZOLE SODIUM 40 MG VIAL IV PUSH SCH (16:18)
[2018-01-05] MEDS: INSULIN NovoLIN REGULAR SUPPLEMENTAL SCALE SQ SCH (18:00)
[2018-01-05] MEDS: ARTIFICIAL TEARS OPTH SOLN 15 ML BTL EACH EYE SCH (18:00)
[2018-01-05 19:14] LABS: HEMATOCRIT 25.8 % (39.0-51.0); HEMOGLOBIN 8.9 GM/DL (13.0-17.0)
[2018-01-05 19:31] LABS: INTERNATIONAL NORMALIZED RATIO 1.5 RATIO; PROTHROMBIN TIME - PATIENT 15.3 SEC (9.8-11.6)
[2018-01-05 19:48] LABS: BICARBONATE 24.8 MEQ/L (21.0-32.0); CREATININE 0.57 MG/DL (0.60-1.30)
[2018-01-05] MEDS: DOCUSATE SODIUM 50 MG/SENNA 8.6 MG TAB PO SCH (19:50)
[2018-01-05] MEDS: CHLORHEXIDINE 0.12% (ORAL KIT) 15 ML CUP MT SCH ×2 (19:52)
[2018-01-05 23:01] LABS: HEMATOCRIT 26.6 % (39.0-51.0); HEMOGLOBIN 9.2 GM/DL (13.0-17.0)
[2018-01-06] VITALS (13 sets, daily range): BP systolic 129–170; BP diastolic 59–94; PULSE 45–89; RESP 12–23; TEMP 98–98.9; O2SAT 95–100
[2018-01-06] MEDS: metroNIDAZOLE 500 MG INJ 100 ML IV SCH ×2 (00:58→04:41)
[2018-01-06] MEDS: SODIUM CHLOR 0.9% 1000 ML INJ 1,000 ML IV SCH ×3 (01:15→20:30)
[2018-01-06 03:06] LABS: AUTOMATED NEUTROPHIL # 7.8 TH/MM3 (1.8-7.7); BASOPHIL % 0.4 % (0.0-2.0); HEMATOCRIT 28.2 % (39.0-51.0); HEMOGLOBIN 9.5 GM/DL (13.0-17.0); LYMPH % 9.2 % (9.0-44.0); LYMPHOCYTE # 0.8 TH/MM3 (1.0-4.8); MEAN CELL VOLUME 86.4 FL (80.0-100.0); MEAN CORPUSCULAR HEMOGLOBIN 29.2 PG (27.0-34.0); MEAN CORPUSCULAR HGB CONC 33.8 % (32.0-36.0); MEAN PLATELET VOLUME 7.8 FL (7.0-11.0); MONO % 3.7 % (0.0-8.0); MONOCYTE # 0.3 TH/MM3 (0-0.9); NEUT % 86.7 % (16.0-70.0); PLATELET COUNT 545 TH/MM3 (150-450); RED BLOOD COUNT 3.26 MIL/MM3 (4.50-5.90); RED CELL DISTRIBUTION WIDTH 16.8 % (11.6-17.2)
[2018-01-06] MEDS: RESP: ALBUTEROL 2.5 MG/IPRATROPIUM 0.5 MG NEB (SCH) INH ×4 (03:16→22:45)
[2018-01-06 03:19] LABS: ALBUMIN 2.6 GM/DL (3.4-5.0); ALT (GPT) 15 U/L (12-78); AST (GOT) 7 U/L (15-37); BICARBONATE 26.9 MEQ/L (21.0-32.0); BLOOD UREA NITROGEN 7 MG/DL (7-18); CALCIUM 8.6 MG/DL (8.5-10.1); CHLORIDE 109 MEQ/L (98-107); CREATININE 0.58 MG/DL (0.60-1.30); GLOMERULAR FILTRATION RATE 161 ML/MIN (>89); GLUCOSE,RANDOM 144 MG/DL (74-106); SODIUM (NA) 145 MEQ/L (136-145)
[2018-01-06] MEDS: PIPERACIL-TAZO 4.5 GM PREMIX 100 ML IV SCH ×4 (03:20→20:29)
[2018-01-06] MEDS: PANTOPRAZOLE SODIUM 40 MG VIAL IV PUSH SCH ×2 (03:20→15:00)
[2018-01-06] MEDS: CHLORHEXIDINE GLUCONATE 2 % 1 PACK (2 CLOTHS) TOP SCH (03:20)
[2018-01-06 03:22] LABS: ALKALINE PHOSPHATASE 83 U/L (45-117); TOTAL BILIRUBIN ADULT 1.2 MG/DL (0.2-1.0); TOTAL PROTEIN 6.7 GM/DL (6.4-8.2)
[2018-01-06] MEDS: MORPHINE SULFATE 4 MG/ML INJ IV PUSH PRN ×4 (04:42→20:29)
[2018-01-06] MEDS: INSULIN NovoLIN REGULAR SUPPLEMENTAL SCALE SQ SCH ×4 (05:29→18:00)
--- NOTE | 2018-01-06 07:30 | HHI.CCPN ---
Subjective Remarks/Hospital Course This is a 32-year-old male. Date of admission . Date of consultation 01/05/2018. Past medical history includes chronic pancreatitis with known pseudocyst with prior history of heavy alcohol intake. He states he quit October 2017. Also history of Qmxvi-Echcuwwyz-Kuorh syndrome, constipation, gastroesophageal reflux disease and hypertension with asthma. with a diagnosis of chronic pancreatitis. Patient has a known history of small pseudocyst but MRCP at that facility showed a massive pseudocyst versus a type III main pancreatic duct disruption. Patient was complaining of abdominal pain at that time. Patient was transferred here for a GI evaluation for endoscopic ultrasound with GI. Hemoglobin admission was around 7. INR 1.4. Today, the patient underwent a Pentax videoscope via endoscopic ultrasound with axios stent placement and pseudocyst drainage. The patient was noted to have a huge pseudocyst with most compression noted in the distal gastric body and antrum. No gastric outlet obstruction. A 10 x 10 axial stent was placed with old blood noted coming from the stent into the abdomen. During the procedure partly 1500 cc suctioned from the stomach. Patient was transfused 2 PRBCs and 2 FFP. Hemoglobin went from 7.7-9.1. Dr. Coffman discussed with interventional radiology for an standpoint bleeding persists. 2 units of PRBCs on standby at all times. Patient is currently hemodynamically stable on propofol drip and remained intubated for the next 24 hours. 01/06/18: Patient self extubated 6 AM today breathing comfortably. Hemoglobin remained stable at 9.5. p.o. diet will have to get clearance from GI. Hemodynamically stable Objective Vital Signs Date Time Temp Pulse Resp B/P (MAP) Pulse Ox O2 Delivery O2 Flow Rate FiO2 01/06/18 06:00 63 01/06/18 04:47 16 01/06/18 04:00 98.3 129/59 (82) 100 01/06/18 01:47 21 01/06/18 00:10 Room Air Intake and Output 01/06/18 01/06/18 01/07/18 08:00 16:00 00:00 Intake Total 1270 ml Output Total 1750 ml Balance -480 ml Result Diagram: 01/06/18 0253 01/06/18 0253 Other Results Laboratory Tests Test 01/05/18 14:57 Blood Gas Puncture Site LT BRACHIAL Blood Gas Patient Temperature 98.6 Blood Gas HCO3 20 mmol/L (22-26) Blood Gas Base Excess -4.4 mmol/L (-2-2) Blood Gas Oxygen Saturation 97 % (90-100) Arterial Blood pH 7.35 (7.380-7.420) Arterial Blood Partial Pressure CO2 38 mmHg (38-42) Arterial Blood Partial Pressure O2 191 mmHg (61-120) Arterial Blood Oxygen Content 12.9 Vol % (12.0-20.0) Arterial Blood Carboxyhemoglobin 1.1 % (0-4) Arterial Blood Methemoglobin 1.1 % (0-2) Blood Gas Hemoglobin 9.1 G/DL (12.0-16.0) Oxygen Delivery Device VENTILATOR Blood Gas Ventilator Setting PRVC/AC Blood Gas Inspired Oxygen 50 % Imaging Last Impressions Abdomen/Pelvis CT 01/03/18 0000 Signed Impressions: Service Date/Time: December 14:16 - CONCLUSION: Large fluid filled mass in the mid abdomen I suspect arising from the neck of the pancreas consistent with large pseudocyst. There is some indistinctness of the pancreas suggesting pancreatitis. Mario Schroeder MD Objective Remarks GENERAL: 32-year-old male currently on NC SKIN: Warm and dry. HEAD: Atraumatic. Normocephalic. EYES: Pupils equal and round. No scleral icterus. No injection or drainage. ENT: No nasal bleeding or discharge. Mucous membranes pink and moist. NECK: Trachea midline. No JVD. CARDIOVASCULAR: Regular rate and rhythm. S1, S2 normal without murmur RESPIRATORY: No accessory muscle use. Clear to auscultation. Breath sounds equal bilaterally. GASTROINTESTINAL: Abdomen soft, mild epigastric tenderness, nondistended. Hypoactive bowel sounds are appreciated MUSCULOSKELETAL: Extremities without significant peripheral edema. No obvious deformities. NEUROLOGICAL: Alert awake oriented, normal speech. Moving all 4 extremities spontaneously. No focal deficits seen A/P Assessment and Plan Neuro/Psych: History of THC use History of EtOH abuse Off all continuos sedation Use morphine as needed for pain Currently on thiamine 100 mg p.o. daily and folic acid 1 mg daily. -change thiamine to IV while n.p.o. CV: Hemorrhagic shock resolved History of Nfavm-Hemihbxbz-Pexca syndrome Hypertension Currently on normal saline at 100 cc an hour Off phenylephrine drip. Holding amlodipine 10 mg and lisinopril 20 mg twice daily/home medication while hypotensive/possible bleed Status post 2 FFP and 2 PRBCs Serial hemoglobins Hemoglobin 9.5. Resp: Acute respiratory failure-extubated 01/06 History of tobaccoism and THC use Self extubated 01/06/ AM. Tolerating well Albuterol/ipratropium aerosols every 6 hours with albuterol aerosols every 2 hours as needed dyspnea Follow postintubation chest x-ray GI: Status post endoscopic ultrasound with 10 x 10 axios stent placement and pseudocyst drainage for hemorrhagic cyst Chronic pancreatitis Hypoalbuminemia Status post endoscopic ultrasound with stent placement as above. -1500 cc per suction. Hemoglobin currently 9.5 Pantoprazole 40 mg IV twice daily Holding docusate sodium 100 mg twice daily. On polythene glycol 17 g daily for constipation Start clear liquid diet when cleared by GI : Mayer catheter for accurate I's and O's in a critically ill patient Endo: Sliding scale insulin with Novolin R with Accu-Cheks to maintain euglycemia/ every 6 hours low regimen Renal: Follow BMP Creatinine initially within normal limits Monitor urine output Accurate I's and O Heme: Acute blood loss anemia Ser iron TIBC both low. Ferritin high s/p 2 FFP and 2 PRBCs. Serial hemoglobins ID: Monitor for infection. Blood cultures 2 ordered Currently on piperacillin/tazobactam and metronidazole day #3. Discontinue metronidazole MSK: Up to chair today FEN: Replace electrolytes as clinically indicated per ICU electrolyte protocol. Potassium and magnesium will be given now Access -Utilize peripheral IV. Central line if indicated Prophylaxis -GI -pantoprazole -DVT -SCD/holding pharmacological prophylaxis in light of hemorrhage Critical Care: Level 3 Hany Worley MD Jan 06, 2018 07:30
[2018-01-06] MEDS: CHLORHEXIDINE 0.12% (ORAL KIT) 15 ML CUP MT SCH ×4 (08:00→20:00)
[2018-01-06] MEDS: SODIUM CHLORIDE 0.9% FLUSH 10 ML FLUSH IV FLUSH SCH ×4 (09:00→20:30)
[2018-01-06] MEDS: ARTIFICIAL TEARS OPTH SOLN 15 ML BTL EACH EYE SCH ×2 (09:00→18:00)
[2018-01-06] MEDS ORDERED: THIAMINE INJ 100 MG in SODIUM CHLORIDE 0.9% INJ 100 ML IV SCH (09:00)
[2018-01-06] MEDS ORDERED: BENZOCAINE 6 MG/MENTHOL 10 MG LOZENGE BUCCAL PRN (09:30)
[2018-01-06] MEDS: DOCUSATE SODIUM 50 MG/SENNA 8.6 MG TAB PO SCH ×2 (09:37→20:29)
[2018-01-06 11:42] LABS: HEMOGLOBIN 9.1 GM/DL (13.0-17.0)
[2018-01-06] MEDS: LACTOBACILLUS ACIDOPHILUS TAB PO SCH ×2 (13:00→17:50)
[2018-01-06 15:17] LABS: HEMATOCRIT 27.8 % (39.0-51.0); HEMOGLOBIN 9.1 GM/DL (13.0-17.0)
--- NOTE | 2018-01-06 15:48 | HHI.GIFU ---
Subjective Remarks Patient sitting up in the chair Still currently n.p.o. but feels like he can take some clear liquids No nausea no vomiting Hemoglobin 9.1 Objective Vitals I&O Vital Signs Date Time Temp Pulse Resp B/P (MAP) Pulse Ox O2 Delivery O2 Flow Rate FiO2 01/06/18 12:00 58 01/06/18 12:00 98.8 58 17 153/80 (104) 100 01/06/18 10:33 16 01/06/18 09:14 100 21 01/06/18 08:00 98.9 61 16 149/85 (106) 100 01/06/18 08:00 61 01/06/18 06:00 63 01/06/18 04:00 98.3 89 18 129/59 (82) 100 01/06/18 04:00 89 01/06/18 02:00 62 01/06/18 01:47 95 21 01/06/18 00:10 100 Room Air 21 01/06/18 00:10 100 21 01/06/18 00:00 45 01/06/18 00:00 98.3 80 23 146/74 (98) 100 01/05/18 23:53 100 40 01/05/18 22:00 50 01/05/18 20:15 100 35 01/05/18 20:00 50 01/05/18 20:00 58 01/05/18 20:00 98.6 50 16 137/81 (99) 100 01/05/18 19:00 100 Mechanical Ventilator 50 01/05/18 18:00 56 01/05/18 16:18 99.5 83 16 152/83 99 01/05/18 16:00 50 01/05/18 16:00 88 01/05/18 16:00 99.5 88 19 142/79 (100) 99 01/05/18 15:58 99.5 87 17 143/78 100 01/05/18 15:47 100 35 I/O 01/05/18 01/05/18 01/05/18 01/06/18 01/06/18 01/06/18 07:00 15:00 23:00 07:00 15:00 23:00 Intake Total 1300 ml 1300 ml 1446 ml 1270 ml Output Total 1500 ml 2650 ml 3750 ml Balance 1300 ml -200 ml -1204 ml -2480 ml Intake Oral 0 ml IV Total 1300 ml 700 ml 1270 ml Packed Cells 400 ml 400 ml FFP 311 ml Blood Product IV Normal Saline Flush 35 ml Other 900 ml Output Urine Total 2650 ml 3650 ml Gastric Drainage Total 0 ml 100 ml Estimated Blood Loss 1500 ml # Voids 3 # Bowel Movements 1 0 Laboratory Laboratory Tests Test 01/05/18 18:45 01/05/18 22:53 01/06/18 02:53 01/06/18 10:39 Hemoglobin 8.9 9.2 9.5 9.1 Hematocrit 25.8 26.6 28.2 27.0 Prothrombin Time 15.3 Prothromb Time International Ratio 1.5 Activated Partial Thromboplast Time 32.0 Fibrinogen 665 Blood Urea Nitrogen 5 7 Creatinine 0.57 0.58 Random Glucose 155 144 Calcium Level 9.0 8.6 Sodium Level 145 145 Potassium Level 3.8 4.0 Chloride Level 108 109 Carbon Dioxide Level 24.8 26.9 Anion Gap 12 9 Estimat Glomerular Filtration Rate 165 161 Lactic Acid Level 0.5 0.5 Ammonia 39 White Blood Count 9.0 Red Blood Count 3.26 Mean Corpuscular Volume 86.4 Mean Corpuscular Hemoglobin 29.2 Mean Corpuscular Hemoglobin Concent 33.8 Red Cell Distribution Width 16.8 Platelet Count 545 Mean Platelet Volume 7.8 Neutrophils (%) (Auto) 86.7 Lymphocytes (%) (Auto) 9.2 Monocytes (%) (Auto) 3.7 Eosinophils (%) (Auto) 0.0 Basophils (%) (Auto) 0.4 Neutrophils # (Auto) 7.8 Lymphocytes # (Auto) 0.8 Monocytes # (Auto) 0.3 Eosinophils # (Auto) 0.0 Basophils # (Auto) 0.0 CBC Comment DIFF FINAL Differential Comment Total Protein 6.7 Albumin 2.6 Phosphorus Level 3.0 Magnesium Level 2.0 Alkaline Phosphatase 83 Aspartate Amino Transf (AST/SGOT) 7 Alanine Aminotransferase (ALT/SGPT) 15 Lactate Dehydrogenase 214 Total Bilirubin 1.2 Amylase Level 19 Lipase 69 Test 01/06/18 14:40 Hemoglobin 9.1 Hematocrit 27.8 Date/Time Source Procedure Growth Status 01/05/18 18:45 Blood Peripheral Aerobic Blood Culture - Preliminary NO GROWTH IN 1 DAY Resulted 01/05/18 18:45 Blood Peripheral Anaerobic Blood Culture - Preliminary NO GROWTH IN 1 DAY Resulted Imaging Last Impressions Chest X-Ray 01/05/18 0000 Signed Impressions: Service Date/Time: Friday, January 05, 2018 15:07 - CONCLUSION: 1. Endotracheal tube in good position 4 cm above the nellie. 2. Mild cardiomegaly and minimal central vascular congestion. 3. Degenerative changes and scoliosis of the thoracic spine. Jeramie Valente MD Abdomen/Pelvis CT 01/03/18 0000 Signed Impressions: Service Date/Time: December 14:16 - CONCLUSION: Large fluid filled mass in the mid abdomen I suspect arising from the neck of the pancreas consistent with large pseudocyst. There is some indistinctness of the pancreas suggesting pancreatitis. Mario Schroeder MD Physical Exam HEENT: PERRL; normocephalic; atraumatic; no jaundice. CHEST: Clear without any rhonchi CARDIAC: RRR ABDOMEN: Soft, minimal distention, mild TTP diffusely; bowel sounds are present in all four quadrants. EXTREMITIES: No clubbing, cyanosis, or edema. SKIN: Normal; no rash; no jaundice. PULVERIZER OPERATOR: No focal deficits; alert and oriented times three. Assessment and Plan Plan Pancreatitis with large massive pseudocyst according to the record. Will attempt to get films from radiology at [place]. Pancreatitis was probably secondary to extensive chronic alcohol usage, patient states no alcohol since October but has continued to have hospitalization 3 for his pancreatitis. Patient continues to have upper abdominal and gastric region abdominal pain approximately 1 week off and now. History of reflux and GERD has been on Protonix for approximately 1 month. Previously was on omeprazole no previous colonoscopy or endoscopy no family history of colon cancer Constipation 3 days probably secondary to decreased appetite and decreased mobility and decreased hydration before coming into the hospital - anemia - hgb 7 receiving blood. no obvious GI bleeding, pt cites hx MARILIN. 01/04/[address] pain unchained. lipase WNL. 01/07/2008, patient had large pseudocyst drainage, with some possible mild bleeding. Patient was transitioned to [facility] and received 2 units of blood with blood on hold, our was on standby but patient seemed to tolerate procedure well. Currently sitting up in the chair will advance diet to clear liquids today Plan Clear liquids, Check lipase in the morning Stool elastase to evaluate the need for Creon Continue to be up out of bed and increase activity Monitor labs with special attention to hemoglobin Transfuse if necessary Supportive GI will continue to follow seen per myself and Dr. Johnson, note was written on his behalf - monitor labs - transfuse PRBC as needed - supportive care This patient was seen per myself and Dr. Coffman, note was done on his behalf Reanna Chaney Jan 06, 2018 15:48
[2018-01-06 18:49] LABS: HEMATOCRIT 28.8 % (39.0-51.0); HEMOGLOBIN 9.6 GM/DL (13.0-17.0)
[2018-01-06 23:49] LABS: HEMATOCRIT 25.9 % (39.0-51.0); HEMOGLOBIN 8.8 GM/DL (13.0-17.0)
[2018-01-07] VITALS (9 sets, daily range): BP systolic 159–184; BP diastolic 91–109; PULSE 48–65; RESP 15–18; TEMP 97.7–98.2; O2SAT 97–100
[2018-01-07] MEDS: PANTOPRAZOLE SODIUM 40 MG VIAL IV PUSH SCH (04:14)
[2018-01-07] MEDS: PIPERACIL-TAZO 4.5 GM PREMIX 100 ML IV SCH (04:14)
[2018-01-07] MEDS: RESP: ALBUTEROL 2.5 MG/IPRATROPIUM 0.5 MG NEB (SCH) INH ×4 (04:20→19:58)
[2018-01-07 06:56] LABS: HEMATOCRIT 26.4 % (39.0-51.0); HEMOGLOBIN 8.9 GM/DL (13.0-17.0); MEAN CELL VOLUME 86.9 FL (80.0-100.0); MEAN CORPUSCULAR HEMOGLOBIN 29.2 PG (27.0-34.0); MEAN CORPUSCULAR HGB CONC 33.6 % (32.0-36.0); PLATELET COUNT 532 TH/MM3 (150-450); RED BLOOD COUNT 3.03 MIL/MM3 (4.50-5.90); RED CELL DISTRIBUTION WIDTH 17.1 % (11.6-17.2); WHITE BLOOD COUNT 8.7 TH/MM3 (4.0-11.0)
[2018-01-07] MEDS ORDERED: ENALAPRILAT 1.25 MG/ML VIAL IV PUSH PRN (08:45)
--- NOTE | 2018-01-07 08:57 | HHI.PR ---
Subjective Remarks F/U HTN. BP elevated pain under control dw RN. Fingerstick stable will discontinue Accu-Cheks. Add Dilaudid for pain control. Dark stools Objective Vitals Vital Signs Date Time Temp Pulse Resp B/P (MAP) Pulse Ox O2 Delivery O2 Flow Rate FiO2 01/07/18 00:00 98.1 54 18 166/96 (119) 97 01/06/18 22:11 98.0 69 16 170/93 (118) 99 01/06/18 21:00 53 18 139/78 (98) 96 01/06/18 20:00 76 01/06/18 20:00 Room Air 01/06/18 20:00 98.4 69 17 159/94 (115) 99 01/06/18 16:00 54 01/06/18 16:00 98.0 54 12 157/84 (108) 99 01/06/18 12:00 58 01/06/18 12:00 98.8 58 17 153/80 (104) 100 01/06/18 10:33 16 01/06/18 09:14 100 21 I/O 01/06/18 01/06/18 01/06/18 01/07/18 01/07/18 01/07/18 07:00 15:00 23:00 07:00 15:00 23:00 Intake Total 1270 ml 200 ml 1340 ml 90 ml Output Total 3750 ml Balance -2480 ml 200 ml 1340 ml 90 ml Intake Oral 240 ml 90 ml IV Total 1270 ml 200 ml 1100 ml Output Urine Total 3650 ml Gastric Drainage Total 100 ml # Voids 1 0 # Bowel Movements 0 0 Result Diagram: 01/07/18 0515 01/06/18 0253 Imaging Last Impressions Chest X-Ray 01/05/18 0000 Signed Impressions: Service Date/Time: Friday, January 05, 2018 15:07 - CONCLUSION: 1. Endotracheal tube in good position 4 cm above the nellie. 2. Mild cardiomegaly and minimal central vascular congestion. 3. Degenerative changes and scoliosis of the thoracic spine. Jeramie Valente MD Abdomen/Pelvis CT 01/03/18 0000 Signed Impressions: Service Date/Time: December 14:16 - CONCLUSION: Large fluid filled mass in the mid abdomen I suspect arising from the neck of the pancreas consistent with large pseudocyst. There is some indistinctness of the pancreas suggesting pancreatitis. Mario Schroeder MD Objective Remarks GENERAL: This is a well-nourished, well-developed patient, in no apparent distress. SKIN: No rashes, ecchymoses or lesions. Cool and dry. CARDIOVASCULAR: Regular rate and rhythm without murmurs, gallops, or rubs. RESPIRATORY: Clear to auscultation. Breath sounds equal bilaterally. No wheezes , rales, or rhonchi. GASTROINTESTINAL: Abdomen soft, tender epigastric, nondistended. No guarding. MUSCULOSKELETAL: Extremities without clubbing, cyanosis, or edema. No calf tenderness. NEUROLOGICAL: Awake and alert. Motor and sensory grossly within normal limits. Normal speech. Procedures EGD, EUS with pseudocyst drainage A/P Problem List: (1) Pancreatitis ICD Code: K85.90 - Acute pancreatitis without necrosis or infection, unspecified Assessment and Plan Neuro/Psych: History of THC use History of EtOH abuse Off all continuos sedation Use morphine as needed for pain. Add Dilaudid p.o. counseled regarding narcotics Currently on thiamine 100 mg p.o. daily and folic acid 1 mg daily. CV: Hemorrhagic shock resolved History of Ehplf-Hnzznzgva-Rrhzg syndrome Hypertension Currently on normal saline at 100 cc an hour, decreased to 80 cc an hour while on clear liquid diet. Discontinue if tolerating regular diet Off phenylephrine drip. BP uncontrolled restart Norvasc at 5 mg daily. Monitor with as needed IV Vasotec and clonidine. Status post 2 FFP and 2 PRBCs Serial hemoglobins Resp: Acute respiratory failure-extubated 01/06 History of tobaccoism and THC use Self extubated 01/06/ AM. Tolerating well Albuterol/ipratropium aerosols every 6 hours with albuterol aerosols every 2 hours as needed dyspnea GI: Status post endoscopic ultrasound with 10 x 10 axios stent placement and pseudocyst drainage for hemorrhagic cyst Chronic pancreatitis Hypoalbuminemia Status post endoscopic ultrasound with stent placement as above. -1500 cc per suction. Hemoglobin currently 9.5 Pantoprazole 40 mg daily Advance diet by GI Endo: Sliding scale insulin with Novolin R with Accu-Cheks to maintain euglycemia/ every 6 hours low regimen. Accu-Cheks stable discontinue Renal: Follow BMP Creatinine initially within normal limits Monitor urine output Accurate I's and O Heme: Acute blood loss anemia Serum iron TIBC both low. Ferritin high s/p 2 FFP and 2 PRBCs. Serial hemoglobins ID: Monitor for infection. Blood cultures 2 ordered Currently on piperacillin/tazobactam will dc no evidence of infection MSK: Up to chair today. No home care PT needed per eval Access -Utilize peripheral IV. Central line if indicated Prophylaxis -GI -pantoprazole -DVT -SCD/holding pharmacological prophylaxis in light of hemorrhage Discharge Planning Dc when cleared by GI or transfer back to [facility] Cannon MD Jan 07, 2018 08:57
[2018-01-07] MEDS ORDERED: HYDROmorphone HCL 2 MG TAB PO PRN (09:00)
[2018-01-07] MEDS ORDERED: NALOXONE HCL 0.4 MG/ML AMP IV PUSH PRN (09:00)
[2018-01-07] MEDS ORDERED: amLODIPine BESYLATE 5 MG TAB PO SCH (09:00)
[2018-01-07] MEDS: DOCUSATE SODIUM 50 MG/SENNA 8.6 MG TAB PO SCH ×2 (09:00→20:10)
[2018-01-07] MEDS: ARTIFICIAL TEARS OPTH SOLN 15 ML BTL EACH EYE SCH ×3 (09:00→17:22)
[2018-01-07] MEDS ORDERED: DILA2TAB4 PO (09:48)
--- NOTE | 2018-01-07 09:49 | HHI.DCPOC ---
Discharge Care Plan Diagnosis: (1) Pancreatitis Your Health Problems Are: Difficulty with ADL Exercise Tolerance Goals to Promote Your Health * To prevent worsening of your condition and complications * To maintain your health at the optimal level Directions to Meet Your Goals Take your medications as prescribed Follow your dietary instruction Follow activity as directed Keep your appointments as scheduled Take your immunizations and boosters as scheduled If your symptoms worsen call your PCP, if no PCP go to Urgent Care Center or Emergency Room Smoking is Dangerous to Your Health. Avoid second hand smoke Call the 24-hour hour crisis hotline for domestic abuse at Casey Don MD Jan 07, 2018 09:49
[2018-01-07] MEDS ORDERED: PILL SPLITTER OTHER PRN (10:30)
[2018-01-07] MEDS: FERROUS SULFATE 325 MG (65 MG ELEMENTAL IRON) TAB PO SCH (11:03)
[2018-01-07] MEDS: PANTOPRAZOLE SOD 40 MG DELAYED RELEASE TAB PO SCH (11:03)
[2018-01-07] MEDS: THIAMINE HCL 100 MG TAB PO SCH (11:03)
[2018-01-07] MEDS: LACTOBACILLUS ACIDOPHILUS TAB PO SCH ×3 (11:04→17:23)
[2018-01-07] MEDS: CHLORHEXIDINE GLUCONATE 2 % 1 PACK (2 CLOTHS) TOP SCH (11:17)
[2018-01-07] MEDS: SODIUM CHLORIDE 0.9% FLUSH 10 ML FLUSH IV FLUSH SCH ×2 (11:17→20:10)
[2018-01-07] MEDS: HYDROmorphone HCL 2 MG TAB PO PRN ×3 (11:20→23:47)
--- NOTE | 2018-01-07 14:40 | HHI.GIFU ---
Subjective Remarks Pt resting in bed. tolerating clears. pain improving. Objective Vitals I&O Vital Signs Date Time Temp Pulse Resp B/P (MAP) Pulse Ox O2 Delivery O2 Flow Rate FiO2 01/07/18 11:59 98.2 52 18 184/109 (134) 98 01/07/18 08:00 98.0 63 18 182/100 (127) 97 01/07/18 00:00 98.1 54 18 166/96 (119) 97 01/06/18 22:11 98.0 69 16 170/93 (118) 99 01/06/18 21:00 53 18 139/78 (98) 96 01/06/18 20:00 76 01/06/18 20:00 Room Air 01/06/18 20:00 98.4 69 17 159/94 (115) 99 01/06/18 16:00 54 01/06/18 16:00 98.0 54 12 157/84 (108) 99 I/O 01/06/18 01/06/18 01/06/18 01/07/18 01/07/18 01/07/18 07:00 15:00 23:00 07:00 15:00 23:00 Intake Total 1270 ml 200 ml 1340 ml 90 ml Output Total 3750 ml Balance -2480 ml 200 ml 1340 ml 90 ml Intake Oral 240 ml 90 ml IV Total 1270 ml 200 ml 1100 ml Output Urine Total 3650 ml Gastric Drainage Total 100 ml # Voids 1 0 # Bowel Movements 0 0 Laboratory Laboratory Tests Test 01/06/18 14:40 01/06/18 18:17 01/06/18 23:10 01/07/18 05:15 Hemoglobin 9.1 9.6 8.8 8.9 Hematocrit 27.8 28.8 25.9 26.4 White Blood Count 8.7 Red Blood Count 3.03 Mean Corpuscular Volume 86.9 Mean Corpuscular Hemoglobin 29.2 Mean Corpuscular Hemoglobin Concent 33.6 Red Cell Distribution Width 17.1 Platelet Count 532 Mean Platelet Volume 8.0 Lipase 104 Test 01/07/18 09:40 Date/Time Source Procedure Growth Status 01/05/18 18:45 Blood Peripheral Aerobic Blood Culture - Preliminary NO GROWTH IN 2 DAYS Resulted 01/05/18 18:45 Blood Peripheral Anaerobic Blood Culture - Preliminary NO GROWTH IN 2 DAYS Resulted 01/07/18 09:40 Stool Stool Stool Occult Blood (PIOTR) Pending Received Imaging Last Impressions Chest X-Ray 01/05/18 0000 Signed Impressions: Service Date/Time: Friday, January 05, 2018 15:07 - CONCLUSION: 1. Endotracheal tube in good position 4 cm above the nellie. 2. Mild cardiomegaly and minimal central vascular congestion. 3. Degenerative changes and scoliosis of the thoracic spine. Jeramie Valente MD Abdomen/Pelvis CT 01/03/18 0000 Signed Impressions: Service Date/Time: December 14:16 - CONCLUSION: Large fluid filled mass in the mid abdomen I suspect arising from the neck of the pancreas consistent with large pseudocyst. There is some indistinctness of the pancreas suggesting pancreatitis. Mario Schroeder MD Physical Exam HEENT: PERRL; normocephalic; atraumatic; no jaundice. CHEST: Clear without any rhonchi CARDIAC: RRR ABDOMEN: Soft, minimal distention, mild TTP diffusely; bowel sounds are present in all four quadrants. EXTREMITIES: No clubbing, cyanosis, or edema. SKIN: Normal; no rash; no jaundice. WARE SERVER: No focal deficits; alert and oriented times three. Assessment and Plan Plan Pancreatitis with large massive pseudocyst according to the record. Will attempt to get films from radiology at [place]. Pancreatitis was probably secondary to extensive chronic alcohol usage, patient states no alcohol since October but has continued to have hospitalization 3 for his pancreatitis. Patient continues to have upper abdominal and gastric region abdominal pain approximately 1 week off and now. History of reflux and GERD has been on Protonix for approximately 1 month. Previously was on omeprazole no previous colonoscopy or endoscopy no family history of colon cancer Constipation 3 days probably secondary to decreased appetite and decreased mobility and decreased hydration before coming into the hospital - anemia - hgb 7 receiving blood. no obvious GI bleeding, pt cites hx MARILIN. 01/04/[address] pain unchained. lipase WNL. 01/07/2008, patient had large pseudocyst drainage, with some possible mild bleeding. Patient was transitioned to [facility] and received 2 units of blood with blood on hold, our was on standby but patient seemed to tolerate procedure well. Currently sitting up in the chair will advance diet to clear liquids today 4/29/18 pain improving. HH stable. tolerating clears. Plan full liquid diet await stool elastase creon if stool elastase < 200 monitor labs seen per myself and Dr. Johnson, note was written on his behalf Shanna Tuttle Jan 07, 2018 14:40
[2018-01-07] MEDS: SODIUM CHLOR 0.9% 1000 ML INJ 1,000 ML IV SCH ×2 (17:29→17:39)
[2018-01-07] MEDS: cloNIDine HCL 0.1 MG TAB PO PRN (17:48)
[2018-01-07] MEDS: LISINOPRIL 20 MG TAB PO SCH (20:10)
[2018-01-08] MEDS: RESP: ALBUTEROL 2.5 MG/IPRATROPIUM 0.5 MG NEB (SCH) INH ×4 (03:09→22:00)
[2018-01-08] MEDS: CHLORHEXIDINE GLUCONATE 2 % 1 PACK (2 CLOTHS) TOP SCH (04:00)
[2018-01-08 04:27] VITALS: BP 156/92; PULSE 48; RESP 16; TEMP 98.4; O2SAT 100
[2018-01-08 08:00] VITALS: BP 189/99; PULSE 48; RESP 19; TEMP 98.4; O2SAT 97
[2018-01-08 08:08] LABS: AUTOMATED NEUTROPHIL # 6.2 TH/MM3 (1.8-7.7); BASOPHIL # 0.1 TH/MM3 (0-0.2); BASOPHIL % 0.7 % (0.0-2.0); EOSINOPHIL # 0.4 TH/MM3 (0-0.4); EOSINOPHIL % 4.1 % (0.0-4.0); HEMATOCRIT 28.5 % (39.0-51.0); HEMOGLOBIN 9.6 GM/DL (13.0-17.0); LYMPH % 20.1 % (9.0-44.0); LYMPHOCYTE # 1.8 TH/MM3 (1.0-4.8); MEAN CELL VOLUME 86.3 FL (80.0-100.0); MEAN CORPUSCULAR HGB CONC 33.6 % (32.0-36.0); MEAN PLATELET VOLUME 8.2 FL (7.0-11.0); MONO % 5.7 % (0.0-8.0); MONOCYTE # 0.5 TH/MM3 (0-0.9); NEUT % 69.4 % (16.0-70.0); PLATELET COUNT 516 TH/MM3 (150-450); RED BLOOD COUNT 3.31 MIL/MM3 (4.50-5.90); RED CELL DISTRIBUTION WIDTH 16.7 % (11.6-17.2)
[2018-01-08 08:10] LABS: BICARBONATE 26.4 MEQ/L (21.0-32.0); CALCIUM 8.9 MG/DL (8.5-10.1); CREATININE 0.51 MG/DL (0.60-1.30); MAGNESIUM 1.8 MG/DL (1.5-2.5)
[2018-01-08] MEDS: ARTIFICIAL TEARS OPTH SOLN 15 ML BTL EACH EYE SCH ×2 (09:00→09:29)
[2018-01-08] MEDS: SODIUM CHLORIDE 0.9% FLUSH 10 ML FLUSH IV FLUSH SCH ×2 (09:00→21:46)
[2018-01-08] MEDS ORDERED: POTASSIUM CHLORIDE 10 MEQ CONTROLLED RELEASE TAB PO ONE ×2 (09:00→14:00)
[2018-01-08] MEDS: PANTOPRAZOLE SOD 40 MG DELAYED RELEASE TAB PO SCH (09:22)
[2018-01-08] MEDS: LACTOBACILLUS ACIDOPHILUS TAB PO SCH ×3 (09:23→18:46)
[2018-01-08] MEDS: THIAMINE HCL 100 MG TAB PO SCH (09:23)
[2018-01-08] MEDS: FERROUS SULFATE 325 MG (65 MG ELEMENTAL IRON) TAB PO SCH (09:23)
[2018-01-08] MEDS: DOCUSATE SODIUM 50 MG/SENNA 8.6 MG TAB PO SCH ×2 (09:23→21:46)
[2018-01-08] MEDS: amLODIPine BESYLATE 5 MG TAB PO SCH (09:23)
[2018-01-08] MEDS: HYDROmorphone HCL 2 MG TAB PO PRN ×2 (09:24→13:39)
[2018-01-08] MEDS: LISINOPRIL 20 MG TAB PO SCH ×2 (09:25→21:46)
[2018-01-08] MEDS: SODIUM CHLOR 0.9% 1000 ML INJ 1,000 ML IV SCH (09:28)
--- NOTE | 2018-01-08 11:03 | HHI.DS ---
Discharge Summary Admission Date Jan 03, 2018 at 14:40 Discharge Date: Jan 08, 2018 Admitting Diagnosis (1) Pancreatitis ICD Code: K85.90 - Acute pancreatitis without necrosis or infection, unspecified Procedures EGD, EUS with pseudocyst drainage Brief History - From Admission In transfer from [place] by Dr. Cerda to the scientific diver and the case was given to us the hospitalist group by him per hospital protocol. History from patient, and review of blood clots from [facility]. Patient was at [place] on monday and admitted to hospital there for abdoominal pain symptoms started 1 week ago january had fever LLQ pain little bit at epigastric had nausea, twice vomiting one day only no dairrhea no black or red stool no blood in urien not sure of vomitign color , maybe green had ct abdomen adn mri done there was diagnosed with chornic pancreatitis a few times before at [place] has hx of pseudocyst was told this admission pseudocyst got bigger they were worried about gi bleeed sx was consulted but not sure what to do and told he was sent here to either drain the pseudocyst or to put in stent was not on antibiotics there per patient was supposed to start, but ended up not was going to have picc line there but ended up not- for TPN, but he tolerated mechanical soft CBC/BMP: 01/08/18 0657 01/08/18 0657 Significant Findings Laboratory Tests Test 01/05/18 13:38 01/05/18 14:57 01/05/18 15:40 01/05/18 18:45 Red Blood Count 2.62 MIL/MM3 (4.50-5.90) Hemoglobin 7.7 GM/DL (13.0-17.0) 8.9 GM/DL (13.0-17.0) Hematocrit 22.7 % (39.0-51.0) 25.8 % (39.0-51.0) Red Cell Distribution Width 17.3 % (11.6-17.2) Platelet Count 486 TH/MM3 (150-450) Monocytes (%) (Auto) 8.1 % (0.0-8.0) Blood Gas HCO3 20 mmol/L (22-26) Blood Gas Base Excess -4.4 mmol/L (-2-2) Arterial Blood pH 7.35 (7.380-7.420) Arterial Blood Partial Pressure O2 191 mmHg (61-120) Blood Gas Hemoglobin 9.1 G/DL (12.0-16.0) Prothrombin Time 15.3 SEC (9.8-11.6) Activated Partial Thromboplast Time 32.0 SEC (24.3-30.1) Fibrinogen 665 mg/dL (227-377) Blood Urea Nitrogen 5 MG/DL (7-18) Creatinine 0.57 MG/DL (0.60-1.30) Random Glucose 155 MG/DL (74-106) Chloride Level 108 MEQ/L (98-107) Ammonia 39 MCMOL/L (11-32) Test 01/05/18 22:53 01/06/18 02:53 01/06/18 10:39 01/06/18 14:40 Hemoglobin 9.2 GM/DL (13.0-17.0) 9.5 GM/DL (13.0-17.0) 9.1 GM/DL (13.0-17.0) 9.1 GM/DL (13.0-17.0) Hematocrit 26.6 % (39.0-51.0) 28.2 % (39.0-51.0) 27.0 % (39.0-51.0) 27.8 % (39.0-51.0) Red Blood Count 3.26 MIL/MM3 (4.50-5.90) Platelet Count 545 TH/MM3 (150-450) Neutrophils (%) (Auto) 86.7 % (16.0-70.0) Neutrophils # (Auto) 7.8 TH/MM3 (1.8-7.7) Lymphocytes # (Auto) 0.8 TH/MM3 (1.0-4.8) Creatinine 0.58 MG/DL (0.60-1.30) Random Glucose 144 MG/DL (74-106) Albumin 2.6 GM/DL (3.4-5.0) Aspartate Amino Transf (AST/SGOT) 7 U/L (15-37) Total Bilirubin 1.2 MG/DL (0.2-1.0) Chloride Level 109 MEQ/L (98-107) Amylase Level 19 U/L (25-115) Lipase 69 U/L (73-393) Test 01/06/18 18:17 01/06/18 23:10 01/07/18 05:15 01/07/18 09:40 Hemoglobin 9.6 GM/DL (13.0-17.0) 8.8 GM/DL (13.0-17.0) 8.9 GM/DL (13.0-17.0) Hematocrit 28.8 % (39.0-51.0) 25.9 % (39.0-51.0) 26.4 % (39.0-51.0) Red Blood Count 3.03 MIL/MM3 (4.50-5.90) Platelet Count 532 TH/MM3 (150-450) Test 01/08/18 06:57 Red Blood Count 3.31 MIL/MM3 (4.50-5.90) Hemoglobin 9.6 GM/DL (13.0-17.0) Hematocrit 28.5 % (39.0-51.0) Platelet Count 516 TH/MM3 (150-450) Eosinophils (%) (Auto) 4.1 % (0.0-4.0) Blood Urea Nitrogen 3 MG/DL (7-18) Creatinine 0.51 MG/DL (0.60-1.30) Random Glucose 116 MG/DL (74-106) Potassium Level 2.8 MEQ/L (3.5-5.1) Chloride Level 109 MEQ/L (98-107) PE at Discharge GENERAL: This is a well-nourished, well-developed patient, in no apparent distress. SKIN: No rashes, ecchymoses or lesions. Cool and dry. CARDIOVASCULAR: Regular rate and rhythm without murmurs, gallops, or rubs. RESPIRATORY: Clear to auscultation. Breath sounds equal bilaterally. No wheezes , rales, or rhonchi. GASTROINTESTINAL: Abdomen soft, tender epigastric, nondistended. No guarding. MUSCULOSKELETAL: Extremities without clubbing, cyanosis, or edema. No calf tenderness. NEUROLOGICAL: Awake and alert. Motor and sensory grossly within normal limits. Normal speech. Hospital Course 32-year-old male transferred to our hospital from [facility] for stent placement for pancreatic cyst. Patient is now status post stent placement. He received 2 units of blood, transfused. His hemoglobin is now stable and has increased spontaneously. Potassium remains low. Supplements are being provided. Further monitoring of H&H as needed. Other than this patient has stabilized. No respiratory compromise at this time. No signs of active bleed. Pain is improving. Medically clear and stable for transfer back to [facility] when transport and bed available. Pt Condition on Discharge: Stable Discharge Disposition: Disch to Another Hospital Discharge Time: > 30 minutes Discharge Instructions DIET: Follow Instructions for: Low Fat Diet Activities you can perform: Regular-No Restrictions Follow up Referrals: Gastroenterology - 1 Week PCP Follow-up - 1 Week New Medications: Hydromorphone (Dilaudid) 2 Mg Tab 2 MG PO Q6H PRN for PAIN SCALE 6 TO 10, #12 TAB Continued Medications: Amlodipine (Norvasc) 10 Mg Tab 10 MG PO DAILY for Blood Pressure Management, #30 TAB 0 Refills Docusate Sodium (Colace) 100 Mg Capsule 100 MG PO BID PRN for CONSTIPATION, #60 CAP 0 Refills Folic Acid (Folic Acid) 0.8 Mg Tab 1000 MCG PO DAILY for Nutritional Supplement, TAB 0 Refills Lisinopril (Lisinopril) 20 Mg Tab 20 MG PO BID, #30 TAB 0 Refills Ondansetron (Zofran) 4 Mg Tab 4 MG PO Q6HR for Nausea, TAB 0 Refills Pantoprazole (Pantoprazole) 40 Mg Tab 40 MG PO DAILY for Reflux, #30 TAB 0 Refills Polyethylene Glycol 3350 Powder (Miralax Powder) 17 Gm Powd 17 GM PO DAILY PRN for CONSTIPATION, #1 CAN 0 Refills Mix and dissolve one measuring cap-ful (17 grams) in water or juice. Thiamine (Vitamin B-1) 100 Mg Tab 100 MG PO DAILY for Nutritional Supplement, TAB 0 Refills Sky Norris MD Jan 08, 2018 11:03
[2018-01-08 12:00] VITALS: BP 172/95; PULSE 54; RESP 19; TEMP 99.2; O2SAT 98
--- NOTE | 2018-01-08 13:15 | HHI.GIFU ---
Subjective Remarks Patient is sitting up in bed awake alert Diet solid food for lunch, no nausea no vomiting but did have mild urgency. Temp high is 99.2 Hemoglobin 9.6 Mild mid abdominal pain to light palpation, mild bloating (Reanna Chaney) Objective Vitals I&O Vital Signs Date Time Temp Pulse Resp B/P (MAP) Pulse Ox O2 Delivery O2 Flow Rate FiO2 01/08/18 12:00 99.2 54 19 172/95 (120) 98 01/08/18 08:00 98.4 48 19 189/99 (129) 97 01/08/18 04:27 98.4 48 16 156/92 (113) 100 01/07/18 23:41 97.8 48 15 159/94 (115) 100 01/07/18 20:12 97.7 60 16 171/91 (117) 100 01/07/18 20:00 100 01/07/18 18:35 62 164/95 (118) 01/07/18 17:45 65 182/102 (128) 01/07/18 16:00 98.0 57 18 177/101 (126) 99 I/O 01/07/18 01/07/18 01/07/18 01/08/18 01/08/18 01/08/18 07:00 15:00 23:00 07:00 15:00 23:00 Intake Total 90 ml 1700 ml 510 ml Output Total 350 ml Balance 90 ml 1350 ml 510 ml Intake Oral 90 ml 1200 ml 100 ml IV Total 500 ml 410 ml Output Urine Total 350 ml # Voids 0 5 2 # Bowel Movements 0 3 Laboratory Laboratory Tests Test 01/08/18 06:57 01/08/18 12:15 White Blood Count 9.0 Red Blood Count 3.31 Hemoglobin 9.6 Hematocrit 28.5 Mean Corpuscular Volume 86.3 Mean Corpuscular Hemoglobin 29.0 Mean Corpuscular Hemoglobin Concent 33.6 Red Cell Distribution Width 16.7 Platelet Count 516 Mean Platelet Volume 8.2 Neutrophils (%) (Auto) 69.4 Lymphocytes (%) (Auto) 20.1 Monocytes (%) (Auto) 5.7 Eosinophils (%) (Auto) 4.1 Basophils (%) (Auto) 0.7 Neutrophils # (Auto) 6.2 Lymphocytes # (Auto) 1.8 Monocytes # (Auto) 0.5 Eosinophils # (Auto) 0.4 Basophils # (Auto) 0.1 CBC Comment DIFF FINAL Differential Comment Blood Urea Nitrogen 3 Creatinine 0.51 Random Glucose 116 Calcium Level 8.9 Magnesium Level 1.8 Sodium Level 144 Potassium Level 2.8 3.0 Chloride Level 109 Carbon Dioxide Level 26.4 Anion Gap 9 Estimat Glomerular Filtration Rate 187 Date/Time Source Procedure Growth Status 01/05/18 18:45 Blood Peripheral Aerobic Blood Culture - Preliminary NO GROWTH IN 3 DAYS Resulted 01/05/18 18:45 Blood Peripheral Anaerobic Blood Culture - Preliminary NO GROWTH IN 3 DAYS Resulted 01/07/18 09:40 Stool Stool Stool Occult Blood (PIOTR) - Final HEMOCCULT NEGATIVE Complete Imaging Last Impressions Chest X-Ray 01/05/18 0000 Signed Impressions: Service Date/Time: Friday, January 05, 2018 15:07 - CONCLUSION: 1. Endotracheal tube in good position 4 cm above the nellie. 2. Mild cardiomegaly and minimal central vascular congestion. 3. Degenerative changes and scoliosis of the thoracic spine. Jeramie Valente MD Abdomen/Pelvis CT 01/03/18 0000 Signed Impressions: Service Date/Time: December 14:16 - CONCLUSION: Large fluid filled mass in the mid abdomen I suspect arising from the neck of the pancreas consistent with large pseudocyst. There is some indistinctness of the pancreas suggesting pancreatitis. Mario Schroeder MD Physical Exam HEENT: PERRL; normocephalic; atraumatic; no jaundice. CHEST: No shortness of breath, no obvious rhonchi or wheezing CARDIAC: RRR ABDOMEN: Soft, minimal distention, new acute abdominal pain, but does have some mild discomfort to light palpation, mid abdomen bowel sounds are present in all four quadrants. EXTREMITIES: No clubbing, cyanosis, or edema. SKIN: Normal; no rash; no jaundice. RUBBER CHEMIST: No focal deficits; alert and oriented times three., Mild anxiety over current condition (Reanna Chaney) Assessment and Plan Plan Pancreatitis with large massive pseudocyst according to the record. Will attempt to get films from radiology at [place]. Pancreatitis was probably secondary to extensive chronic alcohol usage, patient states no alcohol since October but has continued to have hospitalization 3 for his pancreatitis. Patient continues to have upper abdominal and gastric region abdominal pain approximately 1 week off and now. History of reflux and GERD has been on Protonix for approximately 1 month. Previously was on omeprazole no previous colonoscopy or endoscopy no family history of colon cancer Constipation 3 days probably secondary to decreased appetite and decreased mobility and decreased hydration before coming into the hospital - anemia - hgb 7 receiving blood. no obvious GI bleeding, pt cites hx MARILIN. 01/04/[address] pain unchained. lipase WNL. 01/07/2008, patient had large pseudocyst drainage, with some possible mild bleeding. Patient was transitioned to [facility] and received 2 units of blood with blood on hold, our was on standby but patient seemed to tolerate procedure well. Currently sitting up in the chair will advance diet to clear liquids today 01/07/18 pain improving. HH stable. tolerating clears. 01/08/2018, patient has tolerated regular food with some mild urgency BM 3 yesterday. Denies any nausea or vomiting. States there is been discussion of whether he will be discharged from here and be transitioned back to [place], or not. Patient does note that he will have to follow-up with advanced GI, and is willing to try back whenever needed. Current lipase level 104 normalized hemoglobin 9.6 no obvious bleeding. Supportive care and discussion for alcohol abstinence and heart healthy diet with monitoring his eating out habits and spicy foods. Stool elastase is pending and was a send out to the [facility]. Instructions were given to patient if he does discharge before this stool comes back they will need to be some phone calls and follow-up so he knows whether he needs to take Creon or not. He has already bought an online version of this med, so recommendation for Creon midis pending. Encourage patient to be up out of bed and to ambulate with safety. He will need to follow-up for possible biliary stent removal/replacement Note endoscopic ultrasound was done on 01/06 endoscopic ultrasound with axios stent placement and pseudocyst drainage. Plan Diet regular as tolerated Alcohol abstinence to continue Ferrous sulfate Protonix Bowel regimen as needed Anti-emetics await stool elastase, this was a send out to [facility] creon if stool elastase < 200 monitor labs Supportive care seen per myself and Dr. Suarez note was written on his behalf (Reanna Chaney) Plan Patient was seen and examined, tolerated regular diet, no sign of active bleeding, patient can be discharged home tomorrow if still doing okay, follow- up patient in 1-[address] Souza, patient will need another EUS in about 6 weeks (Temitope Suarez MD) Reanna Chaney Jan 08, 2018 13:15 Temitope Suarez MD Jan 08, 2018 17:42
[2018-01-08] MEDS: oxyCODONE/ACETAMINOPHEN 5 MG/325 MG TAB PO PRN ×2 (15:49→21:47)
[2018-01-08 16:09] VITALS: BP 170/96; PULSE 55; RESP 18; TEMP 98.4; O2SAT 100
[2018-01-08 20:00] VITALS: BP 158/94; PULSE 59; RESP 17; TEMP 99.1; O2SAT 100
[2018-01-09 00:01] VITALS: BP 153/94; PULSE 58; RESP 17; TEMP 98.6; O2SAT 99
[2018-01-09] MEDS: oxyCODONE/ACETAMINOPHEN 10 MG/325 MG TAB PO PRN ×6 (02:03→22:44)
[2018-01-09] MEDS: RESP: ALBUTEROL 2.5 MG/IPRATROPIUM 0.5 MG NEB (SCH) INH ×3 (03:15→15:38)
[2018-01-09] MEDS: CHLORHEXIDINE GLUCONATE 2 % 1 PACK (2 CLOTHS) TOP SCH (04:00)
[2018-01-09 06:25] LABS: AUTOMATED NEUTROPHIL # 6.7 TH/MM3 (1.8-7.7); BASOPHIL # 0.1 TH/MM3 (0-0.2); BASOPHIL % 0.8 % (0.0-2.0); EOSINOPHIL # 0.4 TH/MM3 (0-0.4); EOSINOPHIL % 4.1 % (0.0-4.0); HEMATOCRIT 29.7 % (39.0-51.0); HEMOGLOBIN 10.2 GM/DL (13.0-17.0); LYMPH % 21.4 % (9.0-44.0); LYMPHOCYTE # 2.1 TH/MM3 (1.0-4.8); MEAN CELL VOLUME 85.9 FL (80.0-100.0); MEAN CORPUSCULAR HEMOGLOBIN 29.5 PG (27.0-34.0); MEAN CORPUSCULAR HGB CONC 34.4 % (32.0-36.0); MEAN PLATELET VOLUME 8.1 FL (7.0-11.0); MONO % 7.1 % (0.0-8.0); MONOCYTE # 0.7 TH/MM3 (0-0.9); NEUT % 66.6 % (16.0-70.0); PLATELET COUNT 509 TH/MM3 (150-450); RED BLOOD COUNT 3.45 MIL/MM3 (4.50-5.90); RED CELL DISTRIBUTION WIDTH 17.3 % (11.6-17.2)
[2018-01-09 06:52] LABS: ALBUMIN 2.7 GM/DL (3.4-5.0); ALKALINE PHOSPHATASE 86 U/L (45-117); ALT (GPT) 12 U/L (12-78); AST (GOT) 11 U/L (15-37); BICARBONATE 26.7 MEQ/L (21.0-32.0); BLOOD UREA NITROGEN 3 MG/DL (7-18); CALCIUM 8.7 MG/DL (8.5-10.1); CHLORIDE 105 MEQ/L (98-107); CREATININE 0.63 MG/DL (0.60-1.30); GLOMERULAR FILTRATION RATE 147 ML/MIN (>89); GLUCOSE,RANDOM 102 MG/DL (74-106); SODIUM (NA) 141 MEQ/L (136-145); TOTAL BILIRUBIN ADULT 0.4 MG/DL (0.2-1.0); TOTAL PROTEIN 6.4 GM/DL (6.4-8.2)
[2018-01-09 07:45] VITALS: BP 173/90; PULSE 67; RESP 18; TEMP 98.3; O2SAT 100
[2018-01-09] MEDS: LISINOPRIL 20 MG TAB PO SCH ×2 (08:05→21:12)
[2018-01-09] MEDS: FERROUS SULFATE 325 MG (65 MG ELEMENTAL IRON) TAB PO SCH (08:05)
[2018-01-09] MEDS: THIAMINE HCL 100 MG TAB PO SCH (08:06)
[2018-01-09] MEDS: DOCUSATE SODIUM 50 MG/SENNA 8.6 MG TAB PO SCH ×2 (08:06→21:12)
[2018-01-09] MEDS: amLODIPine BESYLATE 5 MG TAB PO SCH (08:06)
[2018-01-09] MEDS: LACTOBACILLUS ACIDOPHILUS TAB PO SCH ×3 (08:06→18:28)
[2018-01-09] MEDS: PANTOPRAZOLE SOD 40 MG DELAYED RELEASE TAB PO SCH (08:06)
[2018-01-09] MEDS: SODIUM CHLORIDE 0.9% FLUSH 10 ML FLUSH IV FLUSH SCH ×2 (08:07→21:12)
[2018-01-09] MEDS: ARTIFICIAL TEARS OPTH SOLN 15 ML BTL EACH EYE SCH ×3 (08:09→18:00)
[2018-01-09] MEDS: SODIUM CHLOR 0.9% 1000 ML INJ 1,000 ML IV SCH ×2 (08:10→21:21)
[2018-01-09] MEDS ORDERED: POTASSIUM CHLORIDE 10 MEQ CONTROLLED RELEASE TAB PO ONE ×2 (08:45→18:00)
--- NOTE | 2018-01-09 10:40 | HHI.PR ---
Subjective Remarks Patient is medically cleared and discharged back to his originating hospital on 01/08/2018. Hemoglobin continues to show upward trend spontaneously. His potassium continues to not yet be balanced. Objective Vital Signs Date Time Temp Pulse Resp B/P (MAP) Pulse Ox O2 Delivery O2 Flow Rate FiO2 01/09/18 07:45 98.3 67 18 173/90 (117) 100 01/09/18 00:01 98.6 58 17 153/94 (113) 99 01/08/18 20:00 99.1 59 17 158/94 (115) 100 01/08/18 16:09 98.4 55 18 170/96 (120) 100 01/08/18 12:00 99.2 54 19 172/95 (120) 98 I/O 01/08/18 01/08/18 01/08/18 01/09/18 01/09/18 01/09/18 06:59 14:59 22:59 06:59 14:59 22:59 Intake Total 510 ml 2509 ml 360 ml Balance 510 ml 2509 ml 360 ml Intake Oral 100 ml 500 ml 360 ml IV Total 410 ml 2009 ml # Voids 2 3 6 # Bowel Movements 1 0 Result Diagram: 01/09/18 0530 01/09/18 0530 Objective Remarks GENERAL: NAD, A&Ox3 HEAD: Normocephalic. NECK: Supple, trachea midline. No lymphadenopathy. EYES: No scleral icterus. No injection or drainage. CARDIOVASCULAR: Regular rate and rhythm without murmurs, gallops, or rubs. RESPIRATORY: Breath sounds equal bilaterally. No accessory muscle use. GASTROINTESTINAL: Abdomen soft, non-tender, nondistended. MUSCULOSKELETAL: No cyanosis, or edema. SKIN: Warm and dry. NEURO: No focal neurological deficitis. A/P Problem List: (1) Pancreatitis ICD Code: K85.90 - Acute pancreatitis without necrosis or infection, unspecified Assessment and Plan 32-year-old male transferred and admitted to [place] from [facility], for pancreatic stenting. Status post pancreatic stenting. No further signs of bleeding. Hemoglobin shows stability. GI is clear this patient for discharge. He will have outpatient follow-up with GI. Potassium levels not yet stabilized. Stable potassium levels needed prior to discharge. Hemoglobin is showing stability and is not holding this patient from a discharge. Hypokalemia Continue to monitor potassium levels Replace potassium as needed Twice daily potassium supplement Provide additional supplements on top of scheduled supplements if needed Anemia Status post 2 units of red blood cells, transfused at the beginning of this day No further signs of bleeding Pancreatitis Pancreatic cyst Status post stenting GI following GI has cleared this patient for discharge DVT prophylaxis SCDs Discharge planning Patient discharged on 01/08/2018 to return to [facility] Consider discharge back to home once the patient's testing levels stabilize Sky Norris MD January 09, 2018 10:40
--- NOTE | 2018-01-09 10:51 | HHI.GIFU ---
Subjective Remarks pt resting in bed. was to go home today but has low potassium. abd pain improving. (Shanna Tuttle) Objective Vitals I&O Vital Signs Date Time Temp Pulse Resp B/P (MAP) Pulse Ox O2 Delivery O2 Flow Rate FiO2 01/09/18 07:45 98.3 67 18 173/90 (117) 100 01/09/18 00:01 98.6 58 17 153/94 (113) 99 01/08/18 20:00 99.1 59 17 158/94 (115) 100 01/08/18 16:09 98.4 55 18 170/96 (120) 100 01/08/18 12:00 99.2 54 19 172/95 (120) 98 I/O 01/08/18 01/08/18 01/08/18 01/09/18 01/09/18 01/09/18 07:00 15:00 23:00 07:00 15:00 23:00 Intake Total 510 ml 2509 ml 360 ml Balance 510 ml 2509 ml 360 ml Intake Oral 100 ml 500 ml 360 ml IV Total 410 ml 2009 ml # Voids 2 3 6 # Bowel Movements 1 0 Laboratory Laboratory Tests Test 01/08/18 12:15 01/09/18 05:30 Potassium Level 3.0 2.9 White Blood Count 10.0 Red Blood Count 3.45 Hemoglobin 10.2 Hematocrit 29.7 Mean Corpuscular Volume 85.9 Mean Corpuscular Hemoglobin 29.5 Mean Corpuscular Hemoglobin Concent 34.4 Red Cell Distribution Width 17.3 Platelet Count 509 Mean Platelet Volume 8.1 Neutrophils (%) (Auto) 66.6 Lymphocytes (%) (Auto) 21.4 Monocytes (%) (Auto) 7.1 Eosinophils (%) (Auto) 4.1 Basophils (%) (Auto) 0.8 Neutrophils # (Auto) 6.7 Lymphocytes # (Auto) 2.1 Monocytes # (Auto) 0.7 Eosinophils # (Auto) 0.4 Basophils # (Auto) 0.1 CBC Comment DIFF FINAL Differential Comment Blood Urea Nitrogen 3 Creatinine 0.63 Random Glucose 102 Total Protein 6.4 Albumin 2.7 Calcium Level 8.7 Alkaline Phosphatase 86 Aspartate Amino Transf (AST/SGOT) 11 Alanine Aminotransferase (ALT/SGPT) 12 Total Bilirubin 0.4 Sodium Level 141 Chloride Level 105 Carbon Dioxide Level 26.7 Anion Gap 9 Estimat Glomerular Filtration Rate 147 Lipase 63 Date/Time Source Procedure Growth Status 01/05/18 18:45 Blood Peripheral Aerobic Blood Culture - Preliminary NO GROWTH IN 3 DAYS Resulted 01/05/18 18:45 Blood Peripheral Anaerobic Blood Culture - Preliminary NO GROWTH IN 3 DAYS Resulted 01/07/18 09:40 Stool Stool Stool Occult Blood (PIOTR) - Final HEMOCCULT NEGATIVE Complete Imaging Last Impressions Chest X-Ray 01/05/18 0000 Signed Impressions: Service Date/Time: Friday, January 05, 2018 15:07 - CONCLUSION: 1. Endotracheal tube in good position 4 cm above the nellie. 2. Mild cardiomegaly and minimal central vascular congestion. 3. Degenerative changes and scoliosis of the thoracic spine. Jeramie Valente MD Abdomen/Pelvis CT 01/03/18 0000 Signed Impressions: Service Date/Time: December 14:16 - CONCLUSION: Large fluid filled mass in the mid abdomen I suspect arising from the neck of the pancreas consistent with large pseudocyst. There is some indistinctness of the pancreas suggesting pancreatitis. Mario Schroeder MD Physical Exam HEENT: PERRL; normocephalic; atraumatic; no jaundice. CHEST: CTA CARDIAC: RRR ABDOMEN: Soft,mildly dist, mild TTP upper quadrants, BS + EXTREMITIES: No clubbing, cyanosis, or edema. SKIN: Normal; no rash; no jaundice. 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 Will attempt to get films from radiology at [place]. Pancreatitis was probably secondary to extensive chronic alcohol usage, patient states no alcohol since October but has continued to have hospitalization 3 for his pancreatitis. Patient continues to have upper abdominal and gastric region abdominal pain approximately 1 week off and now. History of reflux and GERD has been on Protonix for approximately 1 month. Previously was on omeprazole no previous colonoscopy or endoscopy no family history of colon cancer Constipation 3 days probably secondary to decreased appetite and decreased mobility and decreased hydration before coming into the hospital - anemia - hgb 7 receiving blood. no obvious GI bleeding, pt cites hx MARILIN. 01/04/[address] pain unchained. lipase WNL. 01/07/2008, patient had large pseudocyst drainage, with some possible mild bleeding. Patient was transitioned to [facility] and received 2 units of blood with blood on hold, our was on standby but patient seemed to tolerate procedure well. Currently sitting up in the chair will advance diet to clear liquids today 01/07/18 pain improving. HH stable. tolerating clears. 01/08/2018, patient has tolerated regular food with some mild urgency BM 3 yesterday. Denies any nausea or vomiting. States there is been discussion of whether he will be discharged from here and be transitioned back to [facility], or not. Patient does note that he will have to follow-up with advanced GI, and is willing to try back whenever needed. Current lipase level 104 normalized hemoglobin 9.6 no obvious bleeding. Supportive care and discussion for alcohol abstinence and heart healthy diet with monitoring his eating out habits and spicy foods. Stool elastase is pending and was a send out to the [facility]. Instructions were given to patient if he does discharge before this stool comes back they will need to be some phone calls and follow-up so he knows whether he needs to take Creon or not. He has already bought an online version of this med, so recommendation for Creon midis pending. Encourage patient to be up out of bed and to ambulate with safety. He will need to follow-up for possible biliary stent removal/replacement Note endoscopic ultrasound was done on 01/06 endoscopic ultrasound with axios stent placement and pseudocyst drainage. 01/09/18 was to be d/c but has low potassium. tolerating diet. HH trending up. stool elastase pending. Plan BRADY no ETOH Protonix await stool elastase creon if stool elastase < 200 monitor labs GI will sign off. please reconsult if needed seen per myself and Dr. Suarez note was written on his behalf (Shanna Tuttle) Plan Patient was seen and examined, doing well today, agree with above note no abdominal pain patient tolerating diet well okay to discharge home from GI perspective, he need to follow-up with Dr. Souza as an outpatient 2 weeks (Temitope Suarez MD) Shanna Tuttle January 09, 2018 10:51 Temitope Suarez MD January 09, 2018 19:38
[2018-01-09 11:33] VITALS: BP 155/96; PULSE 70; RESP 18; TEMP 98.9; O2SAT 99
[2018-01-09 16:00] VITALS: BP 156/92; PULSE 68; RESP 18; TEMP 100.3; O2SAT 98
[2018-01-09 20:00] VITALS: BP 162/108; PULSE 83; RESP 20; TEMP 99.8; O2SAT 98
[2018-01-09] MEDS: POTASSIUM CHLORIDE 20 MEQ CONTROLLED RELEASE TAB PO SCH (21:12)
[2018-01-09] MEDS: cloNIDine HCL 0.1 MG TAB PO PRN (21:12)
[2018-01-09 22:46] VITALS: BP 150/97; PULSE 62
[2018-01-10] VITALS: BP 142/88; PULSE 56; RESP 20; TEMP 99.2; O2SAT 99
[2018-01-10] MEDS: oxyCODONE/ACETAMINOPHEN 10 MG/325 MG TAB PO PRN ×2 (02:54→09:20)
[2018-01-10 04:00] VITALS: BP 159/93
[2018-01-10] MEDS: CHLORHEXIDINE GLUCONATE 2 % 1 PACK (2 CLOTHS) TOP SCH (04:00)
[2018-01-10 07:05] LABS: AUTOMATED NEUTROPHIL # 5.2 TH/MM3 (1.8-7.7); BASOPHIL # 0.1 TH/MM3 (0-0.2); BASOPHIL % 0.9 % (0.0-2.0); EOSINOPHIL # 0.5 TH/MM3 (0-0.4); EOSINOPHIL % 5.6 % (0.0-4.0); HEMATOCRIT 31.8 % (39.0-51.0); HEMOGLOBIN 10.8 GM/DL (13.0-17.0); LYMPH % 27.8 % (9.0-44.0); LYMPHOCYTE # 2.6 TH/MM3 (1.0-4.8); MEAN CELL VOLUME 85.8 FL (80.0-100.0); MEAN CORPUSCULAR HGB CONC 33.9 % (32.0-36.0); MEAN PLATELET VOLUME 8.2 FL (7.0-11.0); MONO % 9.9 % (0.0-8.0); MONOCYTE # 0.9 TH/MM3 (0-0.9); NEUT % 55.8 % (16.0-70.0); PLATELET COUNT 471 TH/MM3 (150-450); RED BLOOD COUNT 3.71 MIL/MM3 (4.50-5.90); RED CELL DISTRIBUTION WIDTH 17.1 % (11.6-17.2); WHITE BLOOD COUNT 9.3 TH/MM3 (4.0-11.0)
[2018-01-10 07:24] LABS: ALBUMIN 2.8 GM/DL (3.4-5.0); AST (GOT) 6 U/L (15-37); BICARBONATE 26.1 MEQ/L (21.0-32.0); BLOOD UREA NITROGEN 6 MG/DL (7-18); CALCIUM 9.3 MG/DL (8.5-10.1); CHLORIDE 102 MEQ/L (98-107); CREATININE 0.66 MG/DL (0.60-1.30); GLOMERULAR FILTRATION RATE 139 ML/MIN (>89); GLUCOSE,RANDOM 96 MG/DL (74-106); MAGNESIUM 1.9 MG/DL (1.5-2.5); SODIUM (NA) 137 MEQ/L (136-145)
[2018-01-10 07:26] LABS: ALT (GPT) 11 U/L (12-78); PHOSPHORUS 3.8 MG/DL (2.5-4.9)
[2018-01-10 07:28] LABS: ALKALINE PHOSPHATASE 87 U/L (45-117); TOTAL BILIRUBIN ADULT 0.3 MG/DL (0.2-1.0); TOTAL PROTEIN 6.8 GM/DL (6.4-8.2)
[2018-01-10 08:08] VITALS: BP 154/93; PULSE 64; RESP 18; TEMP 97.9; O2SAT 100
[2018-01-10] MEDS ORDERED: POTASSIUM CHLORIDE 10 MEQ CONTROLLED RELEASE TAB PO ONE (08:45)
[2018-01-10] MEDS: amLODIPine BESYLATE 5 MG TAB PO SCH (09:18)
[2018-01-10] MEDS: FERROUS SULFATE 325 MG (65 MG ELEMENTAL IRON) TAB PO SCH (09:18)
[2018-01-10] MEDS: DOCUSATE SODIUM 50 MG/SENNA 8.6 MG TAB PO SCH (09:18)
[2018-01-10] MEDS: PANTOPRAZOLE SOD 40 MG DELAYED RELEASE TAB PO SCH (09:19)
[2018-01-10] MEDS: POTASSIUM CHLORIDE 20 MEQ CONTROLLED RELEASE TAB PO SCH (09:19)
[2018-01-10] MEDS: LISINOPRIL 20 MG TAB PO SCH (09:19)
[2018-01-10] MEDS: THIAMINE HCL 100 MG TAB PO SCH (09:19)
[2018-01-10] MEDS: LACTOBACILLUS ACIDOPHILUS TAB PO SCH (09:19)
[2018-01-10] MEDS ORDERED: COLA100C5 PO (09:42)
[2018-01-10] MEDS ORDERED: POTA-163 PO (09:42)
--- NOTE | 2018-01-10 10:28 | HHI.PR ---
Subjective Remarks Potassium has stabilized. Patient medically clear and stable for discharge home rather than return to the originating hospital. Objective Vital Signs Date Time Temp Pulse Resp B/P (MAP) Pulse Ox O2 Delivery O2 Flow Rate FiO2 01/10/18 08:08 97.9 64 18 154/93 (113) 100 01/10/18 04:00 159/93 (115) 01/10/18 00:00 99.2 56 20 142/88 (106) 99 01/09/18 22:46 62 150/97 (114) 01/09/18 20:00 99.8 83 20 162/108 (126) 98 01/09/18 16:00 100.3 68 18 156/92 (113) 98 01/09/18 15:20 18 01/09/18 11:33 98.9 70 18 155/96 (115) 99 I/O 01/09/18 01/09/18 01/09/18 01/10/18 01/10/18 01/10/18 07:00 15:00 23:00 07:00 15:00 23:00 Intake Total 360 ml 720 ml 400 ml Output Total 0 ml Balance 360 ml 720 ml 400 ml Intake Oral 360 ml 720 ml 400 ml Stool Total 0 ml # Voids 6 5 3 # Bowel Movements 0 2 Result Diagram: 01/10/18 0545 01/10/18 0545 Objective Remarks GENERAL: NAD, A&Ox3 HEAD: Normocephalic. NECK: Supple, trachea midline. No lymphadenopathy. EYES: No scleral icterus. No injection or drainage. CARDIOVASCULAR: Regular rate and rhythm without murmurs, gallops, or rubs. RESPIRATORY: Breath sounds equal bilaterally. No accessory muscle use. GASTROINTESTINAL: Abdomen soft, non-tender, nondistended. MUSCULOSKELETAL: No cyanosis, or edema. SKIN: Warm and dry. NEURO: No focal neurological deficitis. A/P Problem List: (1) Pancreatitis ICD Code: K85.90 - Acute pancreatitis without necrosis or infection, unspecified Assessment and Plan 32-year-old male transferred and admitted to [place] from [facility], for pancreatic stenting. Potassium has stabilized. Medically cleared for discharge home today. Hypokalemia Continue to monitor potassium levels Replace potassium as needed Twice daily potassium supplement Provide additional supplements on top of scheduled supplements if needed Anemia Status post 2 units of red blood cells, transfused at the beginning of this day No further signs of bleeding Pancreatitis Pancreatic cyst Status post stenting GI following GI has cleared this patient for discharge DVT prophylaxis SCDs Discharge planning Patient discharged on 01/08/2018 to return to [facility] Consider discharge back to home once the patient's testing levels stabilize Sky Norris MD January 10, 2018 10:27
[2018-01-10 12:14] VITALS: BP 119/72; PULSE 88; RESP 17; TEMP 99.3; O2SAT 98
[2018-01-10] MEDS ORDERED: PERC5TAB12 PO (13:44)
[2018-01-10] MEDS: oxyCODONE/ACETAMINOPHEN 5 MG/325 MG TAB PO PRN (13:53)
== END 2018-01-10 14:29 | disposition home or self-care (01) | DRG 438 ==
LOC: N04B 14:40 → N03B 01-05 14:11 → N03A 01-05 16:20 → N06B 01-06 21:29
PROVIDERS: ADMIT Hospitalist; ATTEND Hospitalist
PROC: 30233N1 Transfusion of Nonautologous Red Blood Cells into Peripheral Vein, Percutaneous Approach (ICD-10-PCS; 2018-01-04)
PROC: 30233K1 Transfusion of Nonautologous Frozen Plasma into Peripheral Vein, Percutaneous Approach (ICD-10-PCS; 2018-01-05)
PROC: 0DB58ZX Excision of Esophagus, Via Natural or Artificial Opening Endoscopic, Diagnostic (ICD-10-PCS; 2018-01-05)
PROC: 0F9G8ZZ Drainage of Pancreas, Via Natural or Artificial Opening Endoscopic (ICD-10-PCS; principal; 2018-01-05 12:55)
PROC: 0F7D8DZ Dilation of Pancreatic Duct with Intraluminal Device, Via Natural or Artificial Opening Endoscopic (ICD-10-PCS; 2018-01-05 12:55)
DX: K86.3 Pseudocyst of pancreas (principal); K85.90 Acute pancreatitis without necrosis or infection, unspecified; J96.00 Acute respiratory failure, unspecified whether with hypoxia or hypercapnia; R57.8 Other shock; D62 Acute posthemorrhagic anemia; I10 Essential (primary) hypertension; K21.0 Gastro-esophageal reflux disease with esophagitis; I45.6 Pre-excitation syndrome; K86.1 Other chronic pancreatitis; K59.09 Other constipation; E88.09 Other disorders of plasma-protein metabolism, not elsewhere classified; K59.00 Constipation, unspecified; E87.6 Hypokalemia; F12.90 Cannabis use, unspecified, uncomplicated; J45.909 Unspecified asthma, uncomplicated; F17.210 Nicotine dependence, cigarettes, uncomplicated
CPT/HCPCS: 36430; 36600; 43240; 71045; 74177; 80048; 80053; 82140; 82150; 82272; 82728; 82805; 82948; 83540; 83550; 83605; 83615; 83690; 83735; 84100; 84132; 85014; 85018; 85025; 85027; 85384; 85610; 85730; 86850; 86900; 86901; 86920; 86927; 87040; 87641; 88305; 88312; 94002; 94640; 94664; C1726; C1874; C9113; J0330; J1100; J1170; J2250; J2270; J2370; J2405; J2543; J3010; J3411; J3475; J3480; J7030; J7050; P9016; P9017; Q9963; Q9967